=== PATIENT | female | born 1995 | race Caucasian/White ===

== ENCOUNTER 2017-10-18 15:15 | Emergency (ER) | payer OTHER, SELFPAY ==
[2017-10-18 15:18] VITALS: BP 109/66; PULSE 79; RESP 14; TEMP 36.3; O2SAT 98
--- NOTE | 2017-10-18 15:50 | ED.GENADUL ---
Disposition Clinical Impression: Tinea pedis of left foot Disposition: HOME Instructions: Tinea Pedis (ED) Additional Instructions: Use antifungal cream as prescribed. Please follow-up with podiatry. Return to the emergency department immediately for any worsening or new concerning symptoms. Prescriptions: Clotrimazole [CLOTRIMAZOLE 1%] 45 gm TP DIRECTED #1 tube Referrals: Bradley Lopez DPM [[facility] STAFF PHYSICIAN] - Medical Decision Making - Medical Decision Making 22-year-old female here with tinea pedis. Plan to treat with moisture reduction techniques and clotrimazole. Advised follow-up with podiatry should symptoms not improve. History of Present Illness - General Chief complaint: Cellulitis Stated complaint: PER [facility] Time Seen by Provider: 10/18/17 15:36 Source: patient, RN notes reviewed Mode of arrival: ambulatory Limitations: no limitations - History of Present Illness Initial comments: 22-year-old female presents with chief complaint of left foot infection. Patient notes she has had a rash that itches left foot for years. Over the past few days rash has worsened and now her toes are red, itchy and painful. Inflammation is severe. No modifiers. No associated fever. - Related Data Albuterol Sulfate [Albuterol Sulfate Hfa] 8.5 gm IH Q4H PRN PRN 12/21/14 Acetaminophen [Tylenol] 650 mg PO Q4H PRN PRN tab 09/18/15 Ibuprofen 400 mg PO Q4H PRN PRN #60 tablet 09/18/15 Nasal [place] 12/28/15 Sertraline HCl 100 mg PO DAILY #30 tab-cap 12/30/15 Bcp 1 tab PO DAILY 10/18/17 Clotrimazole [CLOTRIMAZOLE 1%] 45 gm TP DIRECTED #1 tube 10/18/17 Allergies Allergy/AdvReac Type Severity Reaction Status Date / Time amoxicillin Allergy Hives Unverified 10/18/17 15:23 cefixime [From Suprax] Allergy Hives Unverified 10/18/17 15:23 cephalexin Allergy Hives Unverified 10/18/17 15:23 clarithromycin [From Biaxin] Allergy Hives Unverified 10/18/17 15:23 clonidine Allergy Hives Unverified 10/18/17 15:23 erythromycin base Allergy Hives Unverified 10/18/17 15:23 Penicillins Allergy Hives Unverified 10/18/17 15:23 Sulfa (Sulfonamide Allergy Hives Unverified 10/18/17 15:23 Antibiotics) Review of Systems Constitutional: denies: chills, fever Skin: as per HPI Past Medical History - Past Medical History Medical history: asthma - Social History Smoking status: current everyday smoker Alcohol use: occasionally Drug use: none General Exam - General Limitations: no limitations General appearance: alert, in no apparent distress - Eye Eye exam: Absent: conjunctival injection - Respiratory Respiratory exam: Present: normal lung sounds bilaterally - Cardiovascular Cardiovascular Exam: Present: regular rate, normal rhythm, normal heart sounds - Skin Skin exam: Present: warm, dry, rash (Well demarcated scaly red rash sole of her foot extending up lateral foot and involving her toes, toes are red and appear slightly inflamed) Course Vital Signs - 24 hr 10/18/17 15:18 Temperature 36.3 C L Pulse 79 Respiratory 14 Rate Blood Pressure 109/66 Pulse Oximetry 98
--- NOTE | 2017-10-18 15:53 | ED.GENADUL_ITS ---
Disposition Clinical Impression: Tinea pedis of left foot Disposition: HOME Instructions: Tinea Pedis (ED) Additional Instructions: Use antifungal cream as prescribed. Please follow-up with podiatry. Return to the emergency department immediately for any worsening or new concerning symptoms. Prescriptions: Clotrimazole [CLOTRIMAZOLE 1%] 45 gm TP DIRECTED #1 tube Referrals: Bradley Lopez DPM [[facility] STAFF PHYSICIAN] - Medical Decision Making - Medical Decision Making 22-year-old female here with tinea pedis. Plan to treat with moisture reduction techniques and clotrimazole. Advised follow-up with podiatry should symptoms not improve. History of Present Illness - General Chief complaint: Cellulitis Stated complaint: PER [facility] Time Seen by Provider: 10/18/17 15:36 Source: patient, RN notes reviewed Mode of arrival: ambulatory Limitations: no limitations - History of Present Illness Initial comments: 22-year-old female presents with chief complaint of left foot infection. Patient notes she has had a rash that itches left foot for years. Over the past few days rash has worsened and now her toes are red, itchy and painful. Inflammation is severe. No modifiers. No associated fever. - Related Data Albuterol Sulfate [Albuterol Sulfate Hfa] 8.5 gm IH Q4H PRN PRN 12/21/14 Acetaminophen [Tylenol] 650 mg PO Q4H PRN PRN tab 09/18/15 Ibuprofen 400 mg PO Q4H PRN PRN #60 tablet 09/18/15 Nasal [place] 12/28/15 Sertraline HCl 100 mg PO DAILY #30 tab-cap 12/30/15 Bcp 1 tab PO DAILY 10/18/17 Clotrimazole [CLOTRIMAZOLE 1%] 45 gm TP DIRECTED #1 tube 10/18/17 Allergies Allergy/AdvReac Type Severity Reaction Status Date / Time amoxicillin Allergy Hives Unverified 10/18/17 15:23 cefixime [From Suprax] Allergy Hives Unverified 10/18/17 15:23 cephalexin Allergy Hives Unverified 10/18/17 15:23 clarithromycin [From Biaxin] Allergy Hives Unverified 10/18/17 15:23 clonidine Allergy Hives Unverified 10/18/17 15:23 erythromycin base Allergy Hives Unverified 10/18/17 15:23 Penicillins Allergy Hives Unverified 10/18/17 15:23 Sulfa (Sulfonamide Allergy Hives Unverified 10/18/17 15:23 Antibiotics) Review of Systems Constitutional: denies: chills, fever Skin: as per HPI Past Medical History - Past Medical History Medical history: asthma - Social History Smoking status: current everyday smoker Alcohol use: occasionally Drug use: none General Exam - General Limitations: no limitations General appearance: alert, in no apparent distress - Eye Eye exam: Absent: conjunctival injection - Respiratory Respiratory exam: Present: normal lung sounds bilaterally - Cardiovascular Cardiovascular Exam: Present: regular rate, normal rhythm, normal heart sounds - Skin Skin exam: Present: warm, dry, rash (Well demarcated scaly red rash sole of her foot extending up lateral foot and involving her toes, toes are red and appear slightly inflamed) Course Vital Signs - 24 hr 10/18/17 15:18 Temperature 36.3 C L Pulse 79 Respiratory 14 Rate Blood Pressure 109/66 Pulse Oximetry 98
== END 2017-10-18 16:06 | disposition home or self-care (01) ==
PROVIDERS: Emergency Provider Student in an Organized Health Care Education/Training Program; PCP Internal Medicine
DX: B35.3 Tinea pedis (principal)
CPT/HCPCS: 36416; 82962; 99283

== ENCOUNTER 2017-10-19 14:20 | Emergency (ER) | payer OTHER, SELFPAY ==
[2017-10-19 14:33] VITALS: BP 116/81; PULSE 87; RESP 18; TEMP 36.6; O2SAT 100
--- NOTE | 2017-10-19 14:48 | ED.GENADUL_ITS ---
Disposition Clinical Impression: Hand, foot and mouth disease Disposition: HOME Condition: Stable Instructions: Hand, Foot, and Mouth Disease (ED) Additional Instructions: Stay well-hydrated and take Tylenol or Motrin as needed for pain control. If not improving over the next week please follow-up with your primary care provider for reassessment. Continue to wash your hands cover your cough and use normal infection spread prevention measures Referrals: Dean Pastrana MD [Primary Care Provider] - 1 week (As needed for reassessment if not improving) Forms: Work Release Medical Decision Making - Medical Decision Making Patient presenting to the emergency department for complaint of rash on feet and palmar surface of her hands. Old records were reviewed and patient was seen yesterday and it was thought to be bilateral tinea on her feet but now showing up on her hands and reassessing it I feel that this is hprl-motf-ssj- mouth. Patient does have some viral symptoms of sore throat and subjective fever and chills. Physical exam does show blanchable erythematous rash on the palmar surface of the hands, plantar and dorsal aspect of the feet. Otherwise patient is well in appearance with no significant signs of illness or distress. Given this patient was encouraged to use symptomatic jwic-cja-vwqamlc treatment of hydration and Tylenol or Motrin and to follow-up with her primary care if not improving in the next 7 days. After discussion of diagnosis and plan of care with patient patient agreed and stated no further needs, questions , or concerns at this time. History of Present Illness - General Chief complaint: RashLesion Stated complaint: [place] ON RASH Time Seen by Provider: 10/19/17 14:24 Source: patient, RN notes reviewed Mode of arrival: ambulatory Limitations: no limitations - History of Present Illness Initial comments: Patient reports that she has ongoing athlete's foot to her left lower foot but then yesterday she began having increased pain and discomfort to both feet. She was seen in the emergency department and diagnosed with bilateral fungal infection. Today she had increased discomfort in her feet and then looked down and noticed similar type rash on her hands. She does state that she has also began having a sore throat and some subjective fever and chills. Patient does state a coworker recently was diagnosed with vbxb-eucr-zcw-mouth and is wondering if this is what is going on. Onset/Timin -: days(s) Location: upper extremity, lower extremity Severity scale (1-10): 8 Quality: aching Consistency: constant Improves with: none Worsens with: none Associated Symptoms: denies other symptoms Treatments Prior to Arrival: none - Related Data Albuterol Sulfate [Albuterol Sulfate Hfa] 8.5 gm IH Q4H PRN PRN 12/21/14 Acetaminophen [Tylenol] 650 mg PO Q4H PRN PRN tab 09/18/15 Ibuprofen 400 mg PO Q4H PRN PRN #60 tablet 09/18/15 Nasal [place] 12/28/15 Sertraline HCl 100 mg PO DAILY #30 tab-cap 12/30/15 Bcp 1 tab PO DAILY 10/18/17 Clotrimazole [CLOTRIMAZOLE 1%] 45 gm TP DIRECTED #1 tube 10/18/17 Allergies Allergy/AdvReac Type Severity Reaction Status Date / Time amoxicillin Allergy Hives Unverified 10/19/17 14:35 cefixime [From Suprax] Allergy Hives Unverified 10/19/17 14:35 cephalexin Allergy Hives Unverified 10/19/17 14:35 clarithromycin [From Biaxin] Allergy Hives Unverified 10/19/17 14:35 clonidine Allergy Hives Unverified 10/19/17 14:35 erythromycin base Allergy Hives Unverified 10/19/17 14:35 Penicillins Allergy Hives Unverified 10/19/17 14:35 Sulfa (Sulfonamide Allergy Hives Unverified 10/19/17 14:35 Antibiotics) Review of Systems Constitutional: chills, diaphoresis, fever. denies: malaise ENT: throat pain. denies: ear pain, congestion Respiratory: denies: cough, shortness of breath Cardiovascular: denies: chest pain Gastrointestinal: denies: abdominal pain, nausea, vomiting Musculoskeletal: denies: joint swelling Skin: as per HPI, rash Neurological: denies: headache Past Medical History - Past Medical History Medical history: asthma Surgical history: appendectomy Psychiatric history: anxiety, depression - Social History Smoking status: current everyday smoker Alcohol use: occasionally Drug use: marijuana General Exam - General Limitations: no limitations General appearance: alert, in no apparent distress - ENT ENT exam: Present: mucous membranes moist, TM's normal bilaterally, normal external ear exam. Absent: normal orophraynx (Tonsillary erythema is noted otherwise unremarkable, no rash, no lesions. ) - Respiratory Respiratory exam: Present: normal lung sounds bilaterally. Absent: respiratory distress, wheezes, rales, rhonchi, stridor - Cardiovascular Cardiovascular Exam: Present: regular rate, normal rhythm, normal heart sounds. Absent: bradycardia, tachycardia, systolic murmur, diastolic murmur, rubs, gallop, clicks - Extremities Exam Extremities exam: Present: full ROM, normal capillary refill. Absent: joint swelling - Neurological Exam Neurological exam: Present: alert, oriented X3, normal gait. Absent: altered - Skin Skin exam: Present: warm, dry, rash (Patient has and erythematous rash to the palmar surfaces of the hands, dorsal and plantar surfaces of the feet. Rash is blanchable and macular. Patient also does have significant excoriation and erythema to the left lower foot that she states is her normal athlete's foot.) Course Vital Signs - 24 hr 10/19/17 14:33 Temperature 36.6 C Pulse 87 Respiratory 18 Rate Blood Pressure 116/81 Pulse Oximetry 100
[2017-10-19 15:04] VITALS: BP 116/81; PULSE 87; RESP 18; TEMP 36.6; O2SAT 100
== END 2017-10-19 15:04 | disposition home or self-care (01) ==
PROVIDERS: Emergency Provider Emergency Medicine; PCP Internal Medicine
DX: B08.4 Enteroviral vesicular stomatitis with exanthem (principal)
CPT/HCPCS: 99282

== ENCOUNTER 2017-12-11 18:39 | Emergency (ER) | payer OTHER, SELFPAY ==
[2017-12-11] VITALS (33 sets, daily range): BP systolic 109–141; BP diastolic 53–89; PULSE 72–153; RESP 12–33; TEMP 36.7–36.9; O2SAT 94–100
--- NOTE | 2017-12-11 18:51 | W.ED.GENAD ---
Discharge Plan Disposition Patient Disposition: HOME Condition: Stable Discharge Details Chief Complaint: Seizure Clinical Impression: Seizure Primary Care Provider: Dean Pastrana ED Provider: Jose Armando Dunaway Home Meds and New Rx's Prescriptions: New levetiracetam [Keppra] 500 mg tablet 500 mg PO BID Qty: 60 RF: 0 Continue NASAL SPRAY RF: 0 sertraline 50 MG tablet 100 mg PO DAILY Qty: 30 RF: 0 albuterol sulfate 8.5 GM HFA aerosol inhaler 8.5 gm Inhalation Q4H PRN PRNRF: 0 acetaminophen [Tylenol] 325 MG tablet 650 mg PO Q4H PRN PRNRF: 0 ibuprofen 400 MG tablet 400 mg PO Q4H PRN PRNQty: 60 RF: 0 Bcp 1 tab PO DAILY RF: 0 clotrimazole 45 GM cream 45 gm Topical DIRECTED Qty: 1 RF: 1 Discharge Instructions Instructions: Levetiracetam (By mouth), Recurrent Seizures in Adults (ED) Additional Instructions: Please return immediately to the emergency department if you develop any new or worsening symptoms or if you become otherwise concerned. It is extremely important that you make an appointment to be seen by neurology and by our primary care doctor within the next 1-[address] until you are seen by a neurologist. Referrals: Dean Pastrana MD [Primary Care Provider] - Isamar Dickerson MD [ [facility] STAFF PHYSICIAN] - Discharge Data Discharge Date/Time-TO BE ENTERED AT DEPARTURE: 12/11/17 22:14 Medical Decision Making Dianne Anaya is a 22 y/o woman with h/o asthma who presented to the emergency department with seizure, with h/o one seizure in the past and not on anti-epileptics. On exam Pt intially mildly confused and tachycardic. Pt rapidly became oriented. Non-focal neuro exam, well and non-toxic appearing. CT head at time of last sz 05/19 neg on record review. Exam/hx not c/w trauma, syncope, CVA, sepsis, ACS, vascular emergency. Concern for recurrent seizure, suspect idiopathic. Plan for EKG, screening labs, IVF hydration, telemetry, keppra load. Will monitor and reassess. Pt with non-diagnostic labs. Significant anion gap, likely 2/2 seizure activity but will continue fluids and repeat. Pt continues to feel well and in her usual state of health. Tachycardia resolved. Pt placed on care management list for outpt f/u with neurology. Anticipating d/c to home, I had lengthy discussion with Pt re: RTED precautions and importance of outpt f/u with PCP and neurology, no driving, no swimming, no other danger activity until cleared by neurology. Rx keppra. Pt signed out to Dr. Dunaway at shift change with reassessment, repeat chemistry and UA/upreg pending. Medical Records Medical records reviewed: Yes I reviewed the patient's medical records. Lab Data Lab results reviewed: Yes I reviewed the patient's lab results. ECG Data Attestation: I personally reviewed and interpreted this ECG (s) as follows: Interpretation: EKG shows ST at 147 with nl axis, no brugada/WPW/long QT/HOCM, no acute ischemic changes HPI General Mode of arrival: EMS. Date/Time Provider Initiated Documentation: 12/11/17 18:51. Limitations to Documentation: no limitations. Information obtained by: patient and family. HPI Narrative: Dianne Anaya is a 22-year-old woman with history of asthma presenting to the emergency room with seizure. Patient is accompanied by her who reports that she had been in her usual state of health and was sitting in the passenger seat of the car while he was driving when she began seizing just prior to arrival. Patient reports that she seized for 1-2 minutes. There was no tongue biting or incontinence. He reports that patient had seizure May 2017. She had a head CT that was negative at that time and did see a physician, but was not started on seizure medications. No other prior seizures. He reports the patient has had no recent illnesses, has been eating and drinking normally, no medication changes, no recent travel. Patient is postictal initial encounter, alert somewhat confused and unsure of what happened. She reports that she feels tired but denies any other complaint. There was no trauma per patient's , she stayed seated in the passenger seat and did not hit her head. Related Data Home Medications Medication Instructions Recorded Confirmed albuterol sulfate 8.5 gm INHALATION Q4H PRN PRN 12/21/14 10/19/17 acetaminophen [Tylenol] 650 mg PO Q4H PRN PRN tab 09/18/15 10/19/17 ibuprofen 400 mg PO Q4H PRN PRN #60 tablet 09/18/15 10/19/17 Nasal [place] 12/28/15 sertraline 100 mg PO DAILY #30 tab-cap 12/30/15 Bcp 1 tab PO DAILY 10/18/17 10/19/17 clotrimazole 45 gm TOPICAL DIRECTED #1 tube 10/18/17 10/19/17 levetiracetam [Keppra] 500 mg PO BID #60 tab 12/11/17 Previous Rx's Medication Instructions Recorded acetaminophen [Tylenol] 650 mg PO Q4H PRN PRN tab 09/18/15 ibuprofen 400 mg PO Q4H PRN PRN #60 tablet 09/18/15 clotrimazole 45 gm TOPICAL DIRECTED #1 tube 10/18/17 levetiracetam [Keppra] 500 mg PO BID #60 tab 12/11/17 Allergies Allergy/AdvReac Type Severity Reaction Status Date / Time amoxicillin Allergy Hives Unverified 10/19/17 14:35 cefixime [From Suprax] Allergy Hives Unverified 10/19/17 14:35 cephalexin Allergy Hives Unverified 10/19/17 14:35 clarithromycin [From Biaxin] Allergy Hives Unverified 10/19/17 14:35 clonidine Allergy Hives Unverified 10/19/17 14:35 erythromycin base Allergy Hives Unverified 10/19/17 14:35 Penicillins Allergy Hives Unverified 10/19/17 14:35 Sulfa (Sulfonamide Allergy Hives Unverified 10/19/17 14:35 Antibiotics) General Stated Complaint: Seizure RIVKA: 3 Review of Systems Review of Systems Constitutional: denies fevers Eyes: denies eye pain ENT: denies facial pain, dental pain, sore throat Cardiovascular: denies chest pain, edema Respiratory: denies SOB, cough GI: denies abdominal pain, vomiting, diarrhea : denies flank pain MSK: denies back pain, neck pain, arthralgias, myalgias Skin: denies rash Neuro: denies headaches, lightheadedness, weakness PFSH Family History Mother Alcohol abuse Hyperlipidemia Mental disorder Father Alcohol abuse Essential hypertension Brother Substance abuse Alcohol abuse Mental disorder Brother Alcohol abuse Brother Alcohol abuse Brother Alcohol abuse Social History Smoking/Tobacco Use Status: Current every day Surgical History Appendectomy (11/08/15) Exam Narrative Exam Narrative: Constitutional: well and svo-psbph-ftocigmzo, pleasant, conversing normally HENT: head atraumatic, normocephalic normal inspection, mucous membranes moist Eyes: conjunctiva normal, sclera normal, pupils 3mm b/l Neck: no stridor, normal ROM, trachea midline Chest: normal inspection Resp: normal work of breathing, LCTAB Cardio: normal rate, normal rhythm, no murmur appreciated GI: abdomen soft, non-tender, non-distended Back: normal inspection, no rash Skin: warm, dry, normal color, no rash Neuro: initially alert but confused as to recent events. rapidly exam changed to alert and oriented x3 without confusion, grossly non-focal, normal tone Ext: no edema Psych: normal mood, normal affect, normal behavior Course Vital Signs Temperature 36.9 C 12/11/17 18:42 Pulse 153 H 12/11/17 18:42 Respiratory Rate 33 H 12/11/17 18:42 Blood Pressure 141/89 H 12/11/17 18:42 Pulse Oximetry 96 12/11/17 18:42 Temperature 36.9 C 12/11/17 18:42 Pulse 153 H 12/11/17 18:42 Respiratory Rate 33 H 12/11/17 18:42 Respiratory Effort 12/11/17 18:45 Blood Pressure 141/89 H 12/11/17 18:42 Blood Pressure Position Supine 12/11/17 18:42 Pulse Oximetry 96 12/11/17 18:42 Oxygen Delivery Method Room Air 12/11/17 18:42 Oxygen Flow Rate 0 12/11/17 18:42 Sign Out Sign Out Data: Sign Out Comment: Patient signed out to Dr. Dunaway pending repeat chemistry and urine testing. Anticipate discharge home. Last updated by Lelia Romo MD at 12/11/17 21:30
[2017-12-11] MEDS: Normal Saline 1,000 ML 1000 ML IV (19:00)
[2017-12-11 19:28] LABS: Abs Immature Grans 0.06 k/cumm (0.0-0.09); HCT 44.4 % (36.0-46.0); Mean Corp. HGB Concentration 31.5 g/dL (32.0-36.0); Mean Corpuscular Hemoglobin 29.9 pg (27.0-33.0); Mean Corpuscular Volume 94.9 fL (80-95); Mean Platelet Volume 12.3 fL (8.0-11.0); Platelet Count 281 x1000/uL (130-400); RBC 4.68 m/cumm (4.00-5.20); RBC Distribution Width 13.1 % (11.7-14.6); White Blood Cell Count 17.41 k/cumm (4.4-10.8)
[2017-12-11 19:40] LABS: ALT 39 U/L (12-78); AST 27 U/L (15-37); Albumin 3.9 g/dL (3.4-5.0); Alkaline Phosphatase 79 U/L (46-116); Anion Gap 25.9 mmol/L (3-11); BUN 7 mg/dL (7-18); Bilirubin, Total 0.3 mg/dL (0.2-1.0); CO2 13.1 mmol/L (21.0-32.0); CREATININE 1.09 mg/dL (0.55-1.02); Calcium 8.6 mg/dL (8.5-10.1); Chloride 100 mmol/L (98-107); Glucose 138 mg/dL (70-100); Potassium 3.3 mmol/L (3.5-5.1); Sodium 139 mmol/L (136-145)
[2017-12-11 19:56] LABS: Atypical Lymphocytes % 4
[2017-12-11 19:57] LABS: Absolute Monocyte Count 1.92 k/cumm (0.11-0.7); Diff Comment Manual Differential; Other Cells 0; Promyelocytes % 0 %
[2017-12-11 19:58] LABS: Absolute Neutrophil Count 5.22 k/cumm (1.2-6.7)
[2017-12-11 21:35] LABS: Bilirubin Negative (Negative); Blood Negative (Negative); Clarity Clear; Glucose Negative (Negative); Ketones Negative (Negative); Leukocyte Esterase Negative (Negative); Nitrite Negative (Negative); Urobilinogen 0.2 EU/dL (Up TO 0.2); pH 7.5 (5-8)
--- NOTE | 2017-12-11 21:41 | ED.GENADUL_ITS ---
Discharge Plan Disposition Patient Disposition: HOME Condition: Stable Discharge Details Chief Complaint: Seizure Clinical Impression: Seizure Primary Care Provider: Dean Pastrana ED Provider: Jose Armando Dunaway Home Meds and New Rx's Prescriptions: New levetiracetam [Keppra] 500 mg tablet 500 mg PO BID Qty: 60 RF: 0 Continue NASAL SPRAY RF: 0 sertraline 50 MG tablet 100 mg PO DAILY Qty: 30 RF: 0 albuterol sulfate 8.5 GM HFA aerosol inhaler 8.5 gm Inhalation Q4H PRN PRNRF: 0 acetaminophen [Tylenol] 325 MG tablet 650 mg PO Q4H PRN PRNRF: 0 ibuprofen 400 MG tablet 400 mg PO Q4H PRN PRNQty: 60 RF: 0 Bcp 1 tab PO DAILY RF: 0 clotrimazole 45 GM cream 45 gm Topical DIRECTED Qty: 1 RF: 1 Discharge Instructions Instructions: Levetiracetam (By mouth), Recurrent Seizures in Adults (ED) Additional Instructions: Please return immediately to the emergency department if you develop any new or worsening symptoms or if you become otherwise concerned. It is extremely important that you make an appointment to be seen by neurology and by our primary care doctor within the next 1-[address] until you are seen by a neurologist. Referrals: Dean Pastrana MD [Primary Care Provider] - Isamar Dickerson MD [ [facility] STAFF PHYSICIAN] - Discharge Data Discharge Date/Time-TO BE ENTERED AT DEPARTURE: 12/11/17 22:14 Medical Decision Making Dianne Anaya is a 22 y/o woman with h/o asthma who presented to the emergency department with seizure, with h/o one seizure in the past and not on anti- epileptics. On exam Pt intially mildly confused and tachycardic. Pt rapidly became oriented. Non-focal neuro exam, well and non-toxic appearing. CT head at time of last sz 05/19 neg on record review. Exam/hx not c/w trauma, syncope, CVA , sepsis, ACS, vascular emergency. Concern for recurrent seizure, suspect idiopathic. Plan for EKG, screening labs, IVF hydration, telemetry, keppra load. Will monitor and reassess. Pt with non-diagnostic labs. Significant anion gap, likely 2/2 seizure activity but will continue fluids and repeat. Pt continues to feel well and in her usual state of health. Tachycardia resolved. Pt placed on care management list for outpt f/u with neurology. Anticipating d/ c to home, I had lengthy discussion with Pt re: RTED precautions and importance of outpt f/u with PCP and neurology, no driving, no swimming, no other danger activity until cleared by neurology. Rx keppra. Pt signed out to Dr. Dunaway at shift change with reassessment, repeat chemistry and UA/upreg pending. Medical Records Medical records reviewed: Yes I reviewed the patient's medical records. Lab Data Lab results reviewed: Yes I reviewed the patient's lab results. ECG Data Attestation: I personally reviewed and interpreted this ECG (s) as follows: Interpretation: EKG shows ST at 147 with nl axis, no brugada/WPW/long QT/HOCM, no acute ischemic changes HPI General Mode of arrival: EMS . Date/Time Provider Initiated Documentation: 12/11/17 18:51 . Limitations to Documentation: no limitations . Information obtained by: patient and family . HPI Narrative: Dianne Anaya is a 22-year-old woman with history of asthma presenting to the emergency room with seizure. Patient is accompanied by her who reports that she had been in her usual state of health and was sitting in the passenger seat of the car while he was driving when she began seizing just prior to arrival. Patient reports that she seized for 1-2 minutes. There was no tongue biting or incontinence. He reports that patient had seizure May 2017. She had a head CT that was negative at that time and did see a physician, but was not started on seizure medications. No other prior seizures. He reports the patient has had no recent illnesses, has been eating and drinking normally, no medication changes, no recent travel. Patient is postictal initial encounter, alert somewhat confused and unsure of what happened. She reports that she feels tired but denies any other complaint. There was no trauma per patient's , she stayed seated in the passenger seat and did not hit her head. Related Data Home Medications Medication Instructions Recorded Confirmed albuterol sulfate 8.5 gm INHALATION Q4H PRN PRN 12/21/14 10/19/17 acetaminophen [Tylenol] 650 mg PO Q4H PRN PRN tab 09/18/15 10/19/17 ibuprofen 400 mg PO Q4H PRN PRN #60 tablet 09/18/15 10/19/17 Nasal [place] 12/28/15 sertraline 100 mg PO DAILY #30 tab-cap 12/30/15 Bcp 1 tab PO DAILY 10/18/17 10/19/17 clotrimazole 45 gm TOPICAL DIRECTED #1 tube 10/18/17 10/19/17 levetiracetam [Keppra] 500 mg PO BID #60 tab 12/11/17 Previous Rx's Medication Instructions Recorded acetaminophen [Tylenol] 650 mg PO Q4H PRN PRN tab 09/18/15 ibuprofen 400 mg PO Q4H PRN PRN #60 tablet 09/18/15 clotrimazole 45 gm TOPICAL DIRECTED #1 tube 10/18/17 levetiracetam [Keppra] 500 mg PO BID #60 tab 12/11/17 Allergies Allergy/AdvReac Type Severity Reaction Status Date / Time amoxicillin Allergy Hives Unverified 10/19/17 14:35 cefixime [From Suprax] Allergy Hives Unverified 10/19/17 14:35 cephalexin Allergy Hives Unverified 10/19/17 14:35 clarithromycin [From Biaxin] Allergy Hives Unverified 10/19/17 14:35 clonidine Allergy Hives Unverified 10/19/17 14:35 erythromycin base Allergy Hives Unverified 10/19/17 14:35 Penicillins Allergy Hives Unverified 10/19/17 14:35 Sulfa (Sulfonamide Allergy Hives Unverified 10/19/17 14:35 Antibiotics) General Stated Complaint: Seizure RIVKA: 3 Review of Systems Review of Systems Constitutional: denies fevers Eyes: denies eye pain ENT: denies facial pain, dental pain, sore throat Cardiovascular: denies chest pain, edema Respiratory: denies SOB, cough GI: denies abdominal pain, vomiting, diarrhea : denies flank pain MSK: denies back pain, neck pain, arthralgias, myalgias Skin: denies rash Neuro: denies headaches, lightheadedness, weakness PFSH Family History Mother Alcohol abuse Hyperlipidemia Mental disorder Father Alcohol abuse Essential hypertension Brother Substance abuse Alcohol abuse Mental disorder Brother Alcohol abuse Brother Alcohol abuse Brother Alcohol abuse Social History Smoking/Tobacco Use Status: Current every day Surgical History Appendectomy (11/08/15) Exam Narrative Exam Narrative: Constitutional: well and [id number], pleasant, conversing normally HENT: head atraumatic, normocephalic normal inspection, mucous membranes moist Eyes: conjunctiva normal, sclera normal, pupils 3mm b/l Neck: no stridor, normal ROM, trachea midline Chest: normal inspection Resp: normal work of breathing, LCTAB Cardio: normal rate, normal rhythm, no murmur appreciated GI: abdomen soft, non-tender, non-distended Back: normal inspection, no rash Skin: warm, dry, normal color, no rash Neuro: initially alert but confused as to recent events. rapidly exam changed to alert and oriented x3 without confusion, grossly non-focal, normal tone Ext: no edema Psych: normal mood, normal affect, normal behavior Course Vital Signs Temperature 36.9 C 12/11/17 18:42 Pulse 153 H 12/11/17 18:42 Respiratory Rate 33 H 12/11/17 18:42 Blood Pressure 141/89 H 12/11/17 18:42 Pulse Oximetry 96 12/11/17 18:42 Temperature 36.9 C 12/11/17 18:42 Pulse 153 H 12/11/17 18:42 Respiratory Rate 33 H 12/11/17 18:42 Respiratory Effort 12/11/17 18:45 Blood Pressure 141/89 H 12/11/17 18:42 Blood Pressure Position Supine 12/11/17 18:42 Pulse Oximetry 96 12/11/17 18:42 Oxygen Delivery Method Room Air 12/11/17 18:42 Oxygen Flow Rate 0 12/11/17 18:42 Sign Out Sign Out Data: Sign Out Comment: Patient signed out to Dr. Dunaway pending repeat chemistry and urine testing. Anticipate discharge home. Last updated by Lelia Romo MD at 12/11/17 21:30
[2017-12-11 21:44] LABS: Anion Gap 6.2 mmol/L (3-11); BUN 5 mg/dL (7-18); CO2 24.8 mmol/L (21.0-32.0); CREATININE 0.55 mg/dL (0.55-1.02); Calcium 7.2 mg/dL (8.5-10.1); Chloride 107 mmol/L (98-107); Glucose 87 mg/dL (70-100); Potassium 4.5 mmol/L (3.5-5.1); Sodium 138 mmol/L (136-145)
[2017-12-11 21:53] LABS: Bacteria Moderate HPF (Negative); Crystals Negative HPF (Negative); Epithelial Cells Many HPF (Negative); RBC Negative (0-2); WBC 0-2 HPF (0-5)
[2017-12-11 21:54] LABS: C & S Indicated? No/Sq. Contamination; Casts Negative LPF (Negative); Mucus Moderate (Negative)
--- NOTE | 2017-12-11 21:59 | ED.GENADUL_ITS ---
Discharge Plan Disposition Patient Disposition: HOME Condition: Stable Discharge Details Chief Complaint: Seizure Clinical Impression: Seizure Primary Care Provider: Dean Pastrana ED Provider: Jose Armando Dunaway Home Meds and New Rx's Prescriptions: New levetiracetam [Keppra] 500 mg tablet 500 mg PO BID Qty: 60 RF: 0 Continue NASAL SPRAY RF: 0 sertraline 50 MG tablet 100 mg PO DAILY Qty: 30 RF: 0 albuterol sulfate 8.5 GM HFA aerosol inhaler 8.5 gm Inhalation Q4H PRN PRNRF: 0 acetaminophen [Tylenol] 325 MG tablet 650 mg PO Q4H PRN PRNRF: 0 ibuprofen 400 MG tablet 400 mg PO Q4H PRN PRNQty: 60 RF: 0 Bcp 1 tab PO DAILY RF: 0 clotrimazole 45 GM cream 45 gm Topical DIRECTED Qty: 1 RF: 1 Discharge Instructions Instructions: Levetiracetam (By mouth), Recurrent Seizures in Adults (ED) Additional Instructions: Please return immediately to the emergency department if you develop any new or worsening symptoms or if you become otherwise concerned. It is extremely important that you make an appointment to be seen by neurology and by our primary care doctor within the next 1-[address] drive until you are seen by a neurologist. Referrals: Dean Pastrana MD [Primary Care Provider] - Isamar Dickerson MD [ [facility] STAFF PHYSICIAN] - Medical Decision Making Received signout from Dr. Romo, please see her note regarding patient's initial presentation and plan of care. Patient did have closure of her anion gap following fluid resuscitation. She is improved. She will continue the antiepileptic as prescribed. She is stable for discharge. Discussed with her home care as well as return precautions Lab Data Lab results reviewed: Yes I reviewed the patient's lab results. Laboratory Tests Range/Units 12/11/17 12/11/17 12/11/17 18:40 18:40 21:00 WBC (4.4-10.8) k/cumm 17.41 H RBC (4.00-5.20) m/cumm 4.68 Hgb (12.0-15.5) g/dL 14.0 Hct (36.0-46.0) % 44.4 MCV (80-95) fL 94.9 MCH (27.0-33.0) pg 29.9 MCHC (32.0-36.0) g/dL 31.5 L RDW (11.7-14.6) % 13.1 Plt Count (130-400) x1000/uL 281 MPV (8.0-11.0) fL 12.3 H Immature Gran % See Differential Neutrophils % 30.0 Lymphocytes % 54.0 Monocytes % 11.0 Eosinophils % 0.0 Basophils % 0.0 Absolute Neutrophils (1.2-6.7) k/cumm 5.22 Band Neutrophils % 0.0 Absolute Lymphocytes (1.2-3.4) k/cumm 10.10 H Absolute Monocytes (0.11-0.7) k/cumm 1.92 H Absolute Eosinophils (0.0-0.7) k/cumm 0.00 Absolute Basophils (0.0-0.2) k/cumm 0.00 Metamyelocytes % 0.0 Myelocytes % 0.0 Promyelocytes % 0 Differential Comment Manual differential Atypical Lymphocytes 4 Other Cell Type 0 RBC Morphology See below Sodium (136-145) mmol/L 139 Potassium (3.5-5.1) mmol/L 3.3 L Chloride (98-107) mmol/L 100 Carbon Dioxide (21.0-32.0) mmol/L 13.1 L Anion Gap (3-11) mmol/L 25.9 H BUN (7-18) mg/dL 7 Creatinine (0.55-1.02) mg/dL 1.09 H Estimated GFR/1.73 m2 (mL/min/1.73m2) >= 60.00 Glucose (70-100) mg/dL 138 H Calcium (8.5-10.1) mg/dL 8.6 Total Bilirubin (0.2-1.0) mg/dL 0.3 AST (15-37) U/L 27 ALT (12-78) U/L 39 Alkaline Phosphatase (46-116) U/L 79 Total Protein (6.4-8.2) g/dL 8.0 Albumin (3.4-5.0) g/dL 3.9 Urine Color (Yellow) Yellow Urine Clarity Clear Urine pH (5-8) 7.5 Ur Specific [place] (1.005-1.025) 1.020 Urine Protein (Negative) mg/dL 30 H Urine Ketones (Negative) mg/dL Negative Urine Blood (Negative) Negative Urine Nitrite (Negative) Negative Urine Bilirubin (Negative) Negative Urine Urobilinogen (Up TO 0.2) EU/dL 0.2 Ur Leukocyte Esterase (Negative) Negative Urine RBC (0-2) Negative Urine WBC (0-5) HPF 0-2 Ur Epithelial Cells (Negative) HPF Many Urine Crystals (Negative) HPF Negative Urine Bacteria (Negative) HPF Moderate Urine Casts (Negative) LPF Negative Urine Mucus (Negative) Moderate Ur Culture Indicated? No/sq. contamination Urine Glucose (Negative) mg/dL Negative Range/Units 12/11/17 21:00 WBC (4.4-10.8) k/cumm RBC (4.00-5.20) m/cumm Hgb (12.0-15.5) g/dL Hct (36.0-46.0) % MCV (80-95) fL MCH (27.0-33.0) pg MCHC (32.0-36.0) g/dL RDW (11.7-14.6) % Plt Count (130-400) x1000/uL MPV (8.0-11.0) fL Immature Gran % Neutrophils % Lymphocytes % Monocytes % Eosinophils % Basophils % Absolute Neutrophils (1.2-6.7) k/cumm Band Neutrophils % Absolute Lymphocytes (1.2-3.4) k/cumm Absolute Monocytes (0.11-0.7) k/cumm Absolute Eosinophils (0.0-0.7) k/cumm Absolute Basophils (0.0-0.2) k/cumm Metamyelocytes % Myelocytes % Promyelocytes % Differential Comment Atypical Lymphocytes Other Cell Type RBC Morphology Sodium (136-145) mmol/L 138 Potassium (3.5-5.1) mmol/L 4.5 D Chloride (98-107) mmol/L 107 Carbon Dioxide (21.0-32.0) mmol/L 24.8 Anion Gap (3-11) mmol/L 6.2 BUN (7-18) mg/dL 5 L Creatinine (0.55-1.02) mg/dL 0.55 D Estimated GFR/1.73 m2 (mL/min/1.73m2) >= 60.00 Glucose (70-100) mg/dL 87 D Calcium (8.5-10.1) mg/dL 7.2 L Total Bilirubin (0.2-1.0) mg/dL AST (15-37) U/L ALT (12-78) U/L Alkaline Phosphatase (46-116) U/L Total Protein (6.4-8.2) g/dL Albumin (3.4-5.0) g/dL Urine Color (Yellow) Urine Clarity Urine pH (5-8) Ur Specific [place] (1.005-1.025) Urine Protein (Negative) mg/dL Urine Ketones (Negative) mg/dL Urine Blood (Negative) Urine Nitrite (Negative) Urine Bilirubin (Negative) Urine Urobilinogen (Up TO 0.2) EU/dL Ur Leukocyte Esterase (Negative) Urine RBC (0-2) Urine WBC (0-5) HPF Ur Epithelial Cells (Negative) HPF Urine Crystals (Negative) HPF Urine Bacteria (Negative) HPF Urine Casts (Negative) LPF Urine Mucus (Negative) Ur Culture Indicated? Urine Glucose (Negative) mg/dL HPI General Mode of arrival: EMS . Date/Time Provider Initiated Documentation: 12/11/17 18:51 . Limitations to Documentation: no limitations . Information obtained by: patient and family . Related Data Home Medications Medication Instructions Recorded Confirmed albuterol sulfate 8.5 gm INHALATION Q4H PRN PRN 12/21/14 10/19/17 acetaminophen [Tylenol] 650 mg PO Q4H PRN PRN tab 09/18/15 10/19/17 ibuprofen 400 mg PO Q4H PRN PRN #60 tablet 09/18/15 10/19/17 Nasal [place] 12/28/15 sertraline 100 mg PO DAILY #30 tab-cap 12/30/15 Bcp 1 tab PO DAILY 10/18/17 10/19/17 clotrimazole 45 gm TOPICAL DIRECTED #1 tube 10/18/17 10/19/17 levetiracetam [Keppra] 500 mg PO BID #60 tab 12/11/17 Previous Rx's Medication Instructions Recorded acetaminophen [Tylenol] 650 mg PO Q4H PRN PRN tab 09/18/15 ibuprofen 400 mg PO Q4H PRN PRN #60 tablet 09/18/15 clotrimazole 45 gm TOPICAL DIRECTED #1 tube 10/18/17 levetiracetam [Keppra] 500 mg PO BID #60 tab 12/11/17 Allergies Allergy/AdvReac Type Severity Reaction Status Date / Time amoxicillin Allergy Hives Unverified 10/19/17 14:35 cefixime [From Suprax] Allergy Hives Unverified 10/19/17 14:35 cephalexin Allergy Hives Unverified 10/19/17 14:35 clarithromycin [From Biaxin] Allergy Hives Unverified 10/19/17 14:35 clonidine Allergy Hives Unverified 10/19/17 14:35 erythromycin base Allergy Hives Unverified 10/19/17 14:35 Penicillins Allergy Hives Unverified 10/19/17 14:35 Sulfa (Sulfonamide Allergy Hives Unverified 10/19/17 14:35 Antibiotics) General Stated Complaint: Seizure RIVKA: 3 PFSH Family History Mother Alcohol abuse Hyperlipidemia Mental disorder Father Alcohol abuse Essential hypertension Brother Substance abuse Alcohol abuse Mental disorder Brother Alcohol abuse Brother Alcohol abuse Brother Alcohol abuse Social History Smoking/Tobacco Use Status: Current every day Surgical History Appendectomy (11/08/15) Course Vital Signs Temperature 36.9 C 12/11/17 18:42 Pulse 153 H 12/11/17 18:42 Respiratory Rate 33 H 12/11/17 18:42 Blood Pressure 141/89 H 12/11/17 18:42 Pulse Oximetry 96 12/11/17 18:42 Temperature 36.9 C 12/11/17 18:42 Pulse 153 H 12/11/17 18:42 Respiratory Rate 33 H 12/11/17 18:42 Respiratory Effort 12/11/17 18:45 Blood Pressure 141/89 H 12/11/17 18:42 Blood Pressure Position Supine 12/11/17 18:42 Pulse Oximetry 96 12/11/17 18:42 Oxygen Delivery Method Room Air 12/11/17 18:42 Oxygen Flow Rate 0 12/11/17 18:42 Lab/Test Results Lab/Test Results: Laboratory Tests Range/Units 12/11/17 12/11/17 12/11/17 18:40 18:40 21:00 WBC (4.4-10.8) k/cumm 17.41 H RBC (4.00-5.20) m/cumm 4.68 Hgb (12.0-15.5) g/dL 14.0 Hct (36.0-46.0) % 44.4 MCV (80-95) fL 94.9 MCH (27.0-33.0) pg 29.9 MCHC (32.0-36.0) g/dL 31.5 L RDW (11.7-14.6) % 13.1 Plt Count (130-400) x1000/uL 281 MPV (8.0-11.0) fL 12.3 H Immature Gran % See Differential Neutrophils % 30.0 Lymphocytes % 54.0 Monocytes % 11.0 Eosinophils % 0.0 Basophils % 0.0 Absolute Neutrophils (1.2-6.7) k/cumm 5.22 Band Neutrophils % 0.0 Absolute Lymphocytes (1.2-3.4) k/cumm 10.10 H Absolute Monocytes (0.11-0.7) k/cumm 1.92 H Absolute Eosinophils (0.0-0.7) k/cumm 0.00 Absolute Basophils (0.0-0.2) k/cumm 0.00 Metamyelocytes % 0.0 Myelocytes % 0.0 Promyelocytes % 0 Differential Comment Manual differential Atypical Lymphocytes 4 Other Cell Type 0 RBC Morphology See below Sodium (136-145) mmol/L 139 Potassium (3.5-5.1) mmol/L 3.3 L Chloride (98-107) mmol/L 100 Carbon Dioxide (21.0-32.0) mmol/L 13.1 L Anion Gap (3-11) mmol/L 25.9 H BUN (7-18) mg/dL 7 Creatinine (0.55-1.02) mg/dL 1.09 H Estimated GFR/1.73 m2 (mL/min/1.73m2) >= 60.00 Glucose (70-100) mg/dL 138 H Calcium (8.5-10.1) mg/dL 8.6 Total Bilirubin (0.2-1.0) mg/dL 0.3 AST (15-37) U/L 27 ALT (12-78) U/L 39 Alkaline Phosphatase (46-116) U/L 79 Total Protein (6.4-8.2) g/dL 8.0 Albumin (3.4-5.0) g/dL 3.9 Urine Color (Yellow) Yellow Urine Clarity Clear Urine pH (5-8) 7.5 Ur Specific [place] (1.005-1.025) 1.020 Urine Protein (Negative) mg/dL 30 H Urine Ketones (Negative) mg/dL Negative Urine Blood (Negative) Negative Urine Nitrite (Negative) Negative Urine Bilirubin (Negative) Negative Urine Urobilinogen (Up TO 0.2) EU/dL 0.2 Ur Leukocyte Esterase (Negative) Negative Urine RBC (0-2) Negative Urine WBC (0-5) HPF 0-2 Ur Epithelial Cells (Negative) HPF Many Urine Crystals (Negative) HPF Negative Urine Bacteria (Negative) HPF Moderate Urine Casts (Negative) LPF Negative Urine Mucus (Negative) Moderate Ur Culture Indicated? No/sq. contamination Urine Glucose (Negative) mg/dL Negative Range/Units 12/11/17 21:00 WBC (4.4-10.8) k/cumm RBC (4.00-5.20) m/cumm Hgb (12.0-15.5) g/dL Hct (36.0-46.0) % MCV (80-95) fL MCH (27.0-33.0) pg MCHC (32.0-36.0) g/dL RDW (11.7-14.6) % Plt Count (130-400) x1000/uL MPV (8.0-11.0) fL Immature Gran % Neutrophils % Lymphocytes % Monocytes % Eosinophils % Basophils % Absolute Neutrophils (1.2-6.7) k/cumm Band Neutrophils % Absolute Lymphocytes (1.2-3.4) k/cumm Absolute Monocytes (0.11-0.7) k/cumm Absolute Eosinophils (0.0-0.7) k/cumm Absolute Basophils (0.0-0.2) k/cumm Metamyelocytes % Myelocytes % Promyelocytes % Differential Comment Atypical Lymphocytes Other Cell Type RBC Morphology Sodium (136-145) mmol/L 138 Potassium (3.5-5.1) mmol/L 4.5 D Chloride (98-107) mmol/L 107 Carbon Dioxide (21.0-32.0) mmol/L 24.8 Anion Gap (3-11) mmol/L 6.2 BUN (7-18) mg/dL 5 L Creatinine (0.55-1.02) mg/dL 0.55 D Estimated GFR/1.73 m2 (mL/min/1.73m2) >= 60.00 Glucose (70-100) mg/dL 87 D Calcium (8.5-10.1) mg/dL 7.2 L Total Bilirubin (0.2-1.0) mg/dL AST (15-37) U/L ALT (12-78) U/L Alkaline Phosphatase (46-116) U/L Total Protein (6.4-8.2) g/dL Albumin (3.4-5.0) g/dL Urine Color (Yellow) Urine Clarity Urine pH (5-8) Ur Specific [place] (1.005-1.025) Urine Protein (Negative) mg/dL Urine Ketones (Negative) mg/dL Urine Blood (Negative) Urine Nitrite (Negative) Urine Bilirubin (Negative) Urine Urobilinogen (Up TO 0.2) EU/dL Ur Leukocyte Esterase (Negative) Urine RBC (0-2) Urine WBC (0-5) HPF Ur Epithelial Cells (Negative) HPF Urine Crystals (Negative) HPF Urine Bacteria (Negative) HPF Urine Casts (Negative) LPF Urine Mucus (Negative) Ur Culture Indicated? Urine Glucose (Negative) mg/dL POC- Test(urine) Negative Sign Out Sign Out Data: Sign Out Comment: Patient signed out to Dr. Dunaway pending repeat chemistry and urine testing. Anticipate discharge home. Last updated by Lelia Romo MD at 12/11/17 21:30
== END 2017-12-11 22:14 | disposition home or self-care (01) ==
PROVIDERS: Student in an Organized Health Care Education/Training Program; Emergency Provider Emergency Medicine; PCP Internal Medicine
DX: R56.9 Unspecified convulsions (principal)
CPT/HCPCS: 80048; 80053; 93005; 96360; 99284; 81003; 81015; 85025; 93010; 99281

== ENCOUNTER 2018-01-29 11:14 | Outpatient (CLI) | payer OTHER, SELFPAY | END 2018-01-29 11:34 | PROVIDERS: PCP Internal Medicine; Visit Provider Psychiatry & Neurology Neurology | DX: R56.9 Unspecified convulsions (principal); Z51.81 Encounter for therapeutic drug level monitoring; Z79.899 Other long term (current) drug therapy | CPT/HCPCS: 36415; 80177 ==

== ENCOUNTER 2018-07-21 10:22 | Emergency (ER) | payer OTHER, SELFPAY ==
[2018-07-21 10:33] VITALS: BP 108/58; PULSE 80; RESP 18; TEMP 36.7; O2SAT 97
--- NOTE | 2018-07-21 10:46 | DI.RAD_ITS ---
SYMPTOMS/DIAGNOSIS: PAIN, INVERSION INJURY RIGHT ANKLE: No fracture or ankle mortise widening is seen. No talar dome defect is present. IMPRESSION: Negative right ankle. RIGHT FOOT: No fracture or dislocation is seen. IMPRESSION: Negative right foot.
--- NOTE | 2018-07-21 10:48 | W.ED.GENAD ---
Discharge Plan Disposition Patient Disposition: HOME Discharge Details Chief Complaint: Orthopedic Clinical Impression: Right foot sprain Primary Care Provider: Dean Pastrana ED Provider: Micha Romo Home Meds and New Rx's Prescriptions: Continued folic acid 1 mg tablet 1 mg PO DAILY Qty: 90 RF: 3 sertraline 50 mg tablet 150 mg PO DAILY Qty: 30 RF: 0 levetiracetam 1,000 mg tablet 1,000 mg PO BID Qty: 60 RF: 5 albuterol sulfate 8.5 GM HFA aerosol inhaler 8.5 gm Inhalation Q4H PRN PRNRF: 0 acetaminophen [Tylenol] 325 MG tablet 650 mg PO Q4H PRN PRNRF: 0 Discharge Instructions Instructions: How to Stop Smoking (ED), Foot Sprain (ED) Additional Instructions: Please use ankle stabilizer and crutches for the next 2 weeks. You may bear weight as tolerated. Please take ibuprofen over the counter - dose according to label. Please contact your primary care physician to arrange follow-up. Be sure to talk to your doctor about smoking cessation. Return to the ER for any worsening or new concerning symptoms. Referrals: Dean Pastrana MD [Primary Care Provider] - Medical Decision Making 23-year-old female here with right ankle pain and tenderness right lateral foot and ankle after inversion injury last night. Neurovascular intact distally. Urine checked and negative. We will give ibuprofen for pain. X-ray of the ankle and foot interpreted by radiology: Normal Patient placed in lace up ankle stabilizer and provided crutches. Usual customary discharge instructions were provided. Smoking cessation counseling greater than 5 minutes was provided. Patient does seem somewhat motivated. HPI General Mode of arrival: ambulatory. Date/Time Provider Initiated Documentation: 07/21/18 10:46. Limitations to Documentation: no limitations. Information obtained by: patient. HPI Narrative: 23-year-old female presents with chief complaint of right ankle pain. Patient notes that last night she attempted to jump over a toy and landed on the tween inverted her right ankle. Pain is moderate and worse with ambulation. Pain is localized to lateral ankle and lateral foot. She has no associated numbness or tingling. No other injury. No pain proximal lower leg. Related Data Home Medications Medication Instructions Recorded Confirmed albuterol sulfate 8.5 gm INHALATION Q4H PRN PRN 12/21/14 07/21/18 acetaminophen [Tylenol] 650 mg PO Q4H PRN PRN tab 09/18/15 07/21/18 folic acid 1 mg tablet 1 mg PO DAILY #90 tab 01/29/18 07/21/18 sertraline 50 mg tablet 150 mg PO DAILY #30 tab-cap 04/22/18 07/21/18 levetiracetam 1,000 mg tablet 1,000 mg PO BID #60 tab 05/19/18 07/21/18 Previous Rx's Medication Instructions Recorded acetaminophen [Tylenol] 650 mg PO Q4H PRN PRN tab 09/18/15 folic acid 1 mg tablet 1 mg PO DAILY #90 tab 01/29/18 levetiracetam 1,000 mg tablet 1,000 mg PO BID #60 tab 05/19/18 Allergies Allergy/AdvReac Type Severity Reaction Status Date / Time amoxicillin Allergy Hives Unverified 07/21/18 10:36 cefixime [From Suprax] Allergy Hives Unverified 07/21/18 10:36 cephalexin Allergy Hives Unverified 07/21/18 10:36 clarithromycin [From Biaxin] Allergy Hives Unverified 07/21/18 10:36 clonidine Allergy Hives Unverified 07/21/18 10:36 erythromycin base Allergy Hives Unverified 07/21/18 10:36 Penicillins Allergy Hives Unverified 07/21/18 10:36 Sulfa (Sulfonamide Allergy Hives Unverified 07/21/18 10:36 Antibiotics) General Stated Complaint: Orthopedic RIVKA: 4 Review of Systems Musculoskeletal Reports as per HPI Neurologic Reports as per HPI [facility] Medical History Epilepsy (Acute) Depression (Acute 02/04/15) Surgical History Appendectomy (11/08/15) Family History Mother Alcohol abuse Hyperlipidemia Mental disorder Father Alcohol abuse Essential hypertension Brother Substance abuse Alcohol abuse Mental disorder Brother Alcohol abuse Brother Alcohol abuse Brother Alcohol abuse Social History Smoking/Tobacco Use Status: Current every day Drug use: Never Do you feel safe in your relationship?: Yes History History Para 1 Hx # Term Pregnancies Multiple births Hx # Pregnancies Ectopic pregnancies AB induced Hx Number of Living Children AB spontaneous Exam Const General: cooperative and healthy appearing Cardio Rate: regular rate Rhythm: regular rhythm Pulses: dorsalis pedis pulses present on the right 2+ Neuro Sensory Exam: no sensory deficits noted (Right foot) Extrem Right lower extremity: lower leg Details: no tenderness (Proximal fibula), ankle Details: tenderness Location: of the lateral malleolus and foot Details: tenderness Location: of the lateral foot Location: distally and in the mid-section Course Vital Signs Temperature 36.7 C 07/21/18 10:33 Pulse 80 07/21/18 10:33 Respiratory Rate 18 07/21/18 10:33 Blood Pressure 108/58 L 07/21/18 10:33 Pulse Oximetry 97 07/21/18 10:33 Temperature 36.7 C 07/21/18 10:33 Temperature Source Skin 07/21/18 10:33 Pulse 80 07/21/18 10:33 Respiratory Rate 18 07/21/18 10:33 Blood Pressure 108/58 L 07/21/18 10:33 Pulse Oximetry 97 07/21/18 10:33 Oxygen Delivery Method Room Air 07/21/18 10:33 Oxygen Flow Rate 0 07/21/18 10:33 Pain Level 4 07/21/18 10:33
--- NOTE | 2018-07-21 10:53 | ED.GENADUL_ITS ---
Discharge Plan Disposition Patient Disposition: HOME Discharge Details Chief Complaint: Orthopedic Clinical Impression: Right foot sprain Primary Care Provider: Dean Pastrana ED Provider: Micha Romo Home Meds and New Rx's Prescriptions: Continued folic acid 1 mg tablet 1 mg PO DAILY Qty: 90 RF: 3 sertraline 50 mg tablet 150 mg PO DAILY Qty: 30 RF: 0 levetiracetam 1,000 mg tablet 1,000 mg PO BID Qty: 60 RF: 5 albuterol sulfate 8.5 GM HFA aerosol inhaler 8.5 gm Inhalation Q4H PRN PRNRF: 0 acetaminophen [Tylenol] 325 MG tablet 650 mg PO Q4H PRN PRNRF: 0 Discharge Instructions Instructions: How to Stop Smoking (ED), Foot Sprain (ED) Additional Instructions: Please use ankle stabilizer and crutches for the next 2 weeks. You may bear weight as tolerated. Please take ibuprofen over the counter - dose according to label. Please contact your primary care physician to arrange follow-up. Be sure to talk to your doctor about smoking cessation. Return to the ER for any worsening or new concerning symptoms. Referrals: Dean Pastrana MD [Primary Care Provider] - Medical Decision Making 23-year-old female here with right ankle pain and tenderness right lateral foot and ankle after inversion injury last night. Neurovascular intact distally. Urine checked and negative. We will give ibuprofen for pain. X-ray of the ankle and foot interpreted by radiology: Normal Patient placed in lace up ankle stabilizer and provided crutches. Usual customary discharge instructions were provided. Smoking cessation counseling greater than 5 minutes was provided. Patient does seem somewhat motivated. HPI General Mode of arrival: ambulatory . Date/Time Provider Initiated Documentation: 07/21/18 10:46 . Limitations to Documentation: no limitations . Information obtained by: patient . HPI Narrative: 23-year-old female presents with chief complaint of right ankle pain. Patient notes that last night she attempted to jump over a toy and landed on the tween inverted her right ankle. Pain is moderate and worse with ambulation. Pain is localized to lateral ankle and lateral foot. She has no associated numbness or tingling. No other injury. No pain proximal lower leg. Related Data Home Medications Medication Instructions Recorded Confirmed albuterol sulfate 8.5 gm INHALATION Q4H PRN PRN 12/21/14 07/21/18 acetaminophen [Tylenol] 650 mg PO Q4H PRN PRN tab 09/18/15 07/21/18 folic acid 1 mg tablet 1 mg PO DAILY #90 tab 01/29/18 07/21/18 sertraline 50 mg tablet 150 mg PO DAILY #30 tab-cap 04/22/18 07/21/18 levetiracetam 1,000 mg tablet 1,000 mg PO BID #60 tab 05/19/18 07/21/18 Previous Rx's Medication Instructions Recorded acetaminophen [Tylenol] 650 mg PO Q4H PRN PRN tab 09/18/15 folic acid 1 mg tablet 1 mg PO DAILY #90 tab 01/29/18 levetiracetam 1,000 mg tablet 1,000 mg PO BID #60 tab 05/19/18 Allergies Allergy/AdvReac Type Severity Reaction Status Date / Time amoxicillin Allergy Hives Unverified 07/21/18 10:36 cefixime [From Suprax] Allergy Hives Unverified 07/21/18 10:36 cephalexin Allergy Hives Unverified 07/21/18 10:36 clarithromycin [From Biaxin] Allergy Hives Unverified 07/21/18 10:36 clonidine Allergy Hives Unverified 07/21/18 10:36 erythromycin base Allergy Hives Unverified 07/21/18 10:36 Penicillins Allergy Hives Unverified 07/21/18 10:36 Sulfa (Sulfonamide Allergy Hives Unverified 07/21/18 10:36 Antibiotics) General Stated Complaint: Orthopedic RIVKA: 4 Review of Systems Musculoskeletal Reports as per HPI Neurologic Reports as per HPI [facility] Medical History Epilepsy (Acute) Depression (Acute 02/04/15) Surgical History Appendectomy (11/08/15) Family History Mother Alcohol abuse Hyperlipidemia Mental disorder Father Alcohol abuse Essential hypertension Brother Substance abuse Alcohol abuse Mental disorder Brother Alcohol abuse Brother Alcohol abuse Brother Alcohol abuse Social History Smoking/Tobacco Use Status: Current every day Drug use: Never Do you feel safe in your relationship?: Yes History History Para 1 Hx # Term Pregnancies Multiple births Hx # Pregnancies Ectopic pregnancies AB induced Hx Number of Living Children AB spontaneous Exam Const General: cooperative and healthy appearing Cardio Rate: regular rate Rhythm: regular rhythm Pulses: dorsalis pedis pulses present on the right 2+ Neuro Sensory Exam: no sensory deficits noted (Right foot) Extrem Right lower extremity: lower leg Details: no tenderness (Proximal fibula), ankle Details: tenderness Location: of the lateral malleolus and foot Details: tenderness Location: of the lateral foot Location: distally and in the mid- section Course Vital Signs Temperature 36.7 C 07/21/18 10:33 Pulse 80 07/21/18 10:33 Respiratory Rate 18 07/21/18 10:33 Blood Pressure 108/58 L 07/21/18 10:33 Pulse Oximetry 97 07/21/18 10:33 Temperature 36.7 C 07/21/18 10:33 Temperature Source Skin 07/21/18 10:33 Pulse 80 07/21/18 10:33 Respiratory Rate 18 07/21/18 10:33 Blood Pressure 108/58 L 07/21/18 10:33 Pulse Oximetry 97 07/21/18 10:33 Oxygen Delivery Method Room Air 07/21/18 10:33 Oxygen Flow Rate 0 07/21/18 10:33 Pain Level 4 07/21/18 10:33
--- NOTE | 2018-07-21 12:23 | NUR.NOTE ---
Nursing Note: patient receceived discharge and follow up instruction, with a return demonstration of crutch teaching. patient home with mother
== END 2018-07-21 12:25 | disposition home or self-care (01) ==
PROVIDERS: Emergency Provider Student in an Organized Health Care Education/Training Program; PCP Internal Medicine
DX: S93.601A Unspecified sprain of right foot, initial encounter (principal); M25.571 Pain in right ankle and joints of right foot; X50.9XXA Other and unspecified overexertion or strenuous movements or postures, initial encounter
CPT/HCPCS: 29515; 81025; 99284; 99406; 73610; 73630; 99283; E0114; L1902

== ENCOUNTER 2018-09-18 09:47 | Outpatient (REF) | payer OTHER, SELFPAY ==
--- NOTE | 2018-09-18 08:45 | PAPFT_PTH ---
PATIENT: Dianne Anaya LOC: [facility] U#:[id number] AGE/SX: 23/F ROOM: RE09/18/[address]: Nicky Gambino : 1995 BED: DIS: 09/18/2018 SPEC #: [id number] RECD: 09/19/18 12:56 STATUS: TWAN REPineda #: [id number] DAISY: 09/18/18 08:[address]: Nicky Gambino DEPT: [facility] Cytology RECD BY: Jovita Zaragoza Tissues: 1 - CX/ENDOCX FOR PAP SMEARS Procedures: PAP THIN PREP/UVM Screening Comments: [id number] (CHLAMYDIA/GC)
[2018-09-22 14:53] LABS: Chlamydia Result Negative; GC Result Negative; Specimen Description SEE COMMENTS
== END 2018-09-18 10:07 ==
LOC: NCHCN 09:47
PROVIDERS: Internal Medicine; PCP Nurse Practitioner Family; Visit Provider Nurse Practitioner Family
DX: Z00.00 Encounter for general adult medical examination without abnormal findings (principal); Z12.4 Encounter for screening for malignant neoplasm of cervix; Z01.419 Encounter for gynecological examination (general) (routine) without abnormal findings
CPT/HCPCS: 87491; 87591; 88142

== ENCOUNTER 2018-09-19 01:18 | Outpatient (CLI) | payer OTHER, SELFPAY ==
--- NOTE | 2018-09-19 09:51 | DI.US_ITS ---
SYMPTOM/DIAGNOSIS: US LEFT BREAST FOR PALPABLE LOWER MEDIAL QUADRANT LEFT BREAST ULTRASOUND: All four quadrants of the left breast were evaluated sonographically. No cystic or solid masses are present. IMPRESSION: Negative left breast ultrasound. Follow up as clinically appropriate. The findings were discussed with the patient on the day of the examination.
== END 2018-09-19 01:38 ==
PROVIDERS: PCP Internal Medicine; Visit Provider Nurse Practitioner Family
DX: N63.24 Unspecified lump in the left breast, lower inner quadrant (principal)
CPT/HCPCS: 76642

== ENCOUNTER 2019-01-14 11:03 | Outpatient (REF) | payer OTHER, SELFPAY ==
[2019-01-14 13:27] LABS: Abs Immature Grans 0.01 k/cumm (0.0-0.09); Absolute Basophil Count 0.02 k/cumm (0.0-0.2); Absolute Eosinophil Count 0.05 k/cumm (0.0-0.7); Absolute Lymphocyte Count 2.58 k/cumm (1.2-3.4); Absolute Monocyte Count 0.49 k/cumm (0.11-0.7); Absolute Neutrophil Count 3.17 k/cumm (1.2-6.7); Basophils % 0.3; Eosinophils % 0.8; HCT 44.7 % (36.0-46.0); HGB 14.3 g/dL (12.0-15.5); Immature Grans % 0.2; Lymphocytes % 40.8; Mean Corpuscular Hemoglobin 29.5 pg (27.0-33.0); Mean Corpuscular Volume 92.4 fL (80-95); Monocytes % 7.8; Neutrophils % 50.1; Platelet Count 237 x1000/uL (130-400); RBC 4.84 m/cumm (4.00-5.20); White Blood Cell Count 6.32 k/cumm (4.4-10.8)
[2019-01-14 14:13] LABS: ALT 24 U/L (14-59); AST 18 U/L (15-37); Alkaline Phosphatase 65 U/L (46-116); Anion Gap 7.1 mmol/L (3-11); BUN 8 mg/dL (7-18); Bilirubin, Total 0.4 mg/dL (0.2-1.0); CO2 27.9 mmol/L (21.0-32.0); CREATININE 0.75 mg/dL (0.55-1.02); Calcium 8.9 mg/dL (8.5-10.1); Chloride 104 mmol/L (98-107); Glucose 85 mg/dL (70-100); Potassium 4.4 mmol/L (3.5-5.1); Sodium 139 mmol/L (136-145); Total Protein 7.5 g/dL (6.4-8.2)
[2019-01-15 21:05] LABS: Levetiracetam 31.7 mcg/mL
== END 2019-01-14 11:23 ==
LOC: NCHCN 11:03
PROVIDERS: PCP Internal Medicine; Visit Provider Specialist/Technologist Athletic Trainer
DX: R51 Headache (principal); R56.9 Unspecified convulsions; Z51.81 Encounter for therapeutic drug level monitoring
CPT/HCPCS: 80053; 80177; 85025

== ENCOUNTER 2019-04-03 14:41 | Outpatient (CLI) | payer OTHER, SELFPAY ==
[2019-04-03 16:37] LABS: *AMPHETAMINES SCREEN URINE Negative (Negative); *BARBITURATES SCREEN URINE Negative (Negative); *BENZODIAZEPINES SCREEN URINE Negative (Negative); Cannabinoids THC Negative (Negative); Cocaine Screen,Urine Negative (Negative); METHADONE URINE SCREEN Negative (Negative); OPIATES URINE SCREEN Negative (Negative)
[2019-04-03 17:30] LABS: Tricyclic Antidepressants Negative (Negative)
[2019-04-06 14:37] LABS: Chlamydia Result Negative (Negative); GC Result Negative (Negative)
[2019-04-08 12:49] LABS: Buprenorphine Negative; Norbuprenorphine Negative
== END 2019-04-03 15:01 ==
PROVIDERS: PCP Internal Medicine; Visit Provider Advanced Practice Midwife
DX: Z34.91 Encounter for supervision of normal pregnancy, unspecified, first trimester (principal); Z11.3 Encounter for screening for infections with a predominantly sexual mode of transmission
CPT/HCPCS: 80307; 87491; 87591; 87086

== ENCOUNTER 2019-04-08 13:42 | Outpatient (CLI) | payer OTHER, SELFPAY ==
[2019-04-08 14:17] LABS: Abs Immature Grans 0.04 k/cumm (0.0-0.09); Absolute Basophil Count 0.02 k/cumm (0.0-0.2); Absolute Eosinophil Count 0.04 k/cumm (0.0-0.7); Absolute Lymphocyte Count 2.53 k/cumm (1.2-3.4); Absolute Monocyte Count 0.51 k/cumm (0.11-0.7); Absolute Neutrophil Count 5.84 k/cumm (1.2-6.7); Basophils % 0.2; Eosinophils % 0.4; HCT 37.4 % (36.0-46.0); HGB 12.4 g/dL (12.0-15.5); Immature Grans % 0.4 %; Lymphocytes % 28.2; Mean Corp. HGB Concentration 33.2 g/dL (32.0-36.0); Mean Corpuscular Hemoglobin 30.1 pg (27.0-33.0); Mean Corpuscular Volume 90.8 fL (80-95); Monocytes % 5.7; Neutrophils % 65.1; Platelet Count 260 x1000/uL (130-400); RBC 4.12 m/cumm (4.00-5.20); RBC Distribution Width 12.3 % (11.7-14.6); White Blood Cell Count 8.98 k/cumm (4.4-10.8)
[2019-04-08 15:13] LABS: TSH (W/Ref FT4) 0.82 uIU/mL (0.36-3.74)
[2019-04-09 09:43] LABS: Hepatitis B Surface Ag Negative (Negative)
[2019-04-09 10:41] LABS: HIV-1/2 Ag & Ab Screen Negative (Negative)
[2019-04-09 10:50] LABS: Hepatitis C Ab w Rflx HCV PCR Negative (Negative)
[2019-04-09 11:58] LABS: Rubella IgG Ab (UVM) Positive (See Note); Varicella IgG Antibody Positive (See Note)
[2019-04-10 09:52] LABS: Levetiracetam 28.8 mcg/mL
[2019-04-13 13:33] LABS: Syphilis Serology (RPR) Negative (Negative)
== END 2019-04-08 14:02 ==
PROVIDERS: Advanced Practice Midwife; PCP Internal Medicine; Visit Provider Psychiatry & Neurology Neurology
DX: O99.351 Diseases of the nervous system complicating pregnancy, first trimester (principal); G40.909 Epilepsy, unspecified, not intractable, without status epilepticus
CPT/HCPCS: 36415; 86787; 86803; 86850; 86900; 86901; 87340; 87389; 80177; 84443; 85025; 86592; 86762; 86780

== ENCOUNTER 2019-05-29 10:58 | Outpatient (CLI) | payer OTHER, SELFPAY ==
[2019-05-30 12:27] LABS: Levetiracetam 54.8 mcg/mL
== END 2019-05-29 11:18 ==
PROVIDERS: PCP Internal Medicine; Visit Provider Psychiatry & Neurology Neurology
DX: G40.009 Localization-related (focal) (partial) idiopathic epilepsy and epileptic syndromes with seizures of localized onset, not intractable, without status epilepticus (principal); Z51.81 Encounter for therapeutic drug level monitoring
CPT/HCPCS: 36415; 80177

== ENCOUNTER 2019-06-28 17:46 | Emergency (ER) | payer OTHER, SELFPAY ==
[2019-06-28 17:49] VITALS: BP 107/48; PULSE 90; RESP 14; O2SAT 95
--- NOTE | 2019-06-28 18:23 | ED.GENADUL_ITS ---
Discharge Plan Disposition Patient Disposition: HOME Condition: Stable Discharge Details Chief Complaint: Laceration Clinical Impression: Hand laceration Primary Care Provider: Dean Pastrana ED Provider: Kerry Mercado Home Meds and New Rx's Prescriptions: Continued folic acid 1 mg tablet 1 mg PO .three times a day Qty: 90 RF: 12 vit-iron fum-folic ac 27 mg iron- 0.8 mg tablet 1 tab PO DAILY Qty: 90 RF: 3 sertraline 50 mg tablet 150 mg PO DAILY Qty: 30 RF: 0 levetiracetam 1,000 mg tablet 1,500 mg PO BID Qty: 90 RF: 5 albuterol sulfate 8.5 GM HFA aerosol inhaler 8.5 gm Inhalation Q4H PRN PRNRF: 0 acetaminophen [Tylenol] 325 MG tablet 650 mg PO Q4H PRN PRNRF: 0 Discharge Instructions Instructions: Laceration (ED) Additional Instructions: No soaking, in 12 to 24 hours you may wash wound under running water with soap. Allow to dry. Keep clean and dry every day. Keep covered if outside. Have sutures removed in 7 to 10 days return sooner or be seen if any increasing redness, swelling, drainage or signs of infection. The anesthesia will wear off in approximately 2 hours so you may take Tylenol upon returning home. Follow up with primary care provider in 3-5 days. Return to ED sooner if any worsening or concerns. Increase oral fluids. Referrals: Dean Pastrana MD [Primary Care Provider] - Medical Decision Making 24-year-old female presents with a single linear laceration to the dorsum of her left hand in between her thumb and pointer finger. She states that she was cutting some zip ties while fishing poles prior to arrival and the knife slipped and she excellently cut herself. She has full range of motion on initial exam bleeding is controlled. Last tetanus shot was 2015. Laceration irrigated wound care performed with sterile saline and chlorhexidine. Laceration infiltrated with 1% lidocaine with epi approximately 1 male patient tolerated without difficulty. Anesthesia achieved. 2 simple interrupted sutures placed patient tolerated well. Wound well approximated. Bacitracin and nonadhesive dressing applied in department. Patient discussed home care and instructed to return in 7 days to have sutures removed. Given red flags including signs of infection and home care and instructions to return or be seen sooner. Patient verbalized understanding. Patient's last tetanus shot was in 2015 so tetanus was not given in this visit. X-ray was initially ordered and then canceled after learning of patient's . Due to mechanism of injury the likelihood of foreign body is very low and I do not deem exposure to radiation completely necessary at this time. Discussed with patient shared decision making patient verbalized understanding. Patient discharged to home with home care. This text was generated using Stop Being Watchedation system, please disregard any oddities of phrase or misspellings. HPI General Mode of arrival: ambulatory . Date/Time Provider Initiated Documentation: 06/28/19 17:47 . Limitations to Documentation: no limitations . Information obtained by: patient . HPI Narrative: 24-year-old female presents with a single linear laceration to the dorsum of her left hand in between her thumb and pointer finger. She states that she was cutting some zip ties while fishing poles prior to arrival and the knife slipped and she excellently cut herself. She has full range of motion on initial exam bleeding is controlled. Last tetanus shot was 2015. Related Data Home Medications Medication Instructions Recorded Confirmed albuterol sulfate 8.5 gm INHALATION Q4H PRN PRN 12/21/14 06/28/19 acetaminophen [Tylenol] 650 mg PO Q4H PRN PRN tab 09/18/15 06/28/19 sertraline 50 mg tablet 150 mg PO DAILY #30 tab-cap 04/22/18 06/28/19 folic acid 1 mg tablet 1 mg PO .three times a day #90 tab 03/09/19 06/28/19 vitamins-iron fumarate 27 1 tab PO DAILY #90 tab 04/03/19 06/28/19 mg iron-folic acid 0.8 mg tablet levetiracetam 1,000 mg tablet 1,500 mg PO BID #90 tab 04/13/19 06/28/19 Previous Rx's Medication Instructions Recorded acetaminophen [Tylenol] 650 mg PO Q4H PRN PRN tab 09/18/15 folic acid 1 mg tablet 1 mg PO .three times a day #90 tab 03/09/19 vitamins-iron fumarate 27 1 tab PO DAILY #90 tab 04/03/19 mg iron-folic acid 0.8 mg tablet levetiracetam 1,000 mg tablet 1,500 mg PO BID #90 tab 04/13/19 Allergies Allergy/AdvReac Type Severity Reaction Status Date / Time amoxicillin Allergy Hives Verified 06/28/19 17:52 cefixime [From Suprax] Allergy Hives Verified 06/28/19 17:52 cephalexin Allergy Hives Verified 06/28/19 17:52 clarithromycin [From Biaxin] Allergy Hives Verified 06/28/19 17:52 clonidine Allergy Hives Verified 06/28/19 17:52 erythromycin base Allergy Hives Verified 06/28/19 17:52 Penicillins Allergy Hives Verified 06/28/19 17:52 Sulfa (Sulfonamide Allergy Hives Verified 06/28/19 17:52 Antibiotics) General Stated Complaint: Laceration RIVKA: 4 Review of Systems Constitutional Constitutional: Reports as per HPI Integumentary/Breasts Skin/Breast: Reports wounds (Laceration to the dorsum of the left hand as noted in HPI.) [facility] Medical History Anxiety disorder, unspecified (Acute) Depression (Acute 02/04/15) Epilepsy (Acute) Adult focal epilepsy; 2 febrile seizures around age 4 Tobacco dependence (Acute) Surgical History Appendectomy (11/08/15) S/p bilateral myringotomy with tube placement (Acute) Family History Mother Alcohol abuse recovery Hyperlipidemia Mental disorder Father Alcohol abuse recovery Essential hypertension Brother Substance abuse , AlcoholCocaine Alcohol abuse Mental disorder Brother Alcohol abuse Brother Alcohol abuse Brother Alcohol abuse Other Spina bifida Social History Smoking/Tobacco Use Status: Current every day Quit status: not considering quitting Alcohol Intake: never Drug use: Never Number of Children: 1 current occupation: [employer] Do you feel safe at home: Yes Do you feel safe in your relationship?: Yes Additional Social history: She lives with the father of her children (he is 20+ years older). She has a daughter named Emelyn who was born in September 2015. 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 History History 2 Para 1 Hx # Term Pregnancies 1 Multiple births 0 Hx # Pregnancies 0 Ectopic pregnancies 0 AB induced 0 Hx Number of Living Children 1 AB spontaneous 0 Past Pregnancies Del. Date GA/Weeks # Outcome Route Wgt Sex Labor Lgth Anesthes ia Location Prov Complic 09/18/15 38 No Successful vaginal 1.984 kg Female 30.5 hrs dustin cnm Delivery Date: 09/18/15 iol for iugr. @ 37.4 weeks perineal depression which resulted in of 1,3 &3. infant stabilized and [place] [facility] [place] spent 6 days in [facility]. [place] [facility] [place] pathology w/o significant findings. LAURA SCOTT Exam Resp Effort & Inspection: normal respiratory effort Cardio Rate: regular rate Rhythm: regular rhythm GI Inspection: normal to inspection Palpation: soft Skin Trauma: laceration left dorsal hand linear, superficial, motor nerve function intact and sensation intact; not contaminated and does not involve muscle tissue Course Vital Signs Vital signs: Vital Signs Pulse 90 06/28/19 17:49 Respiratory Rate 14 06/28/19 17:49 Blood Pressure 107/48 L 06/28/19 17:49 Pulse Oximetry 95 06/28/19 17:49 Temperature Source Skin 06/28/19 17:49 Pulse 90 06/28/19 17:49 Respiratory Rate 14 06/28/19 17:49 Respiratory Effort Non-Labored 06/28/19 17:53 Blood Pressure 107/48 L 06/28/19 17:49 Blood Pressure Position Sitting 06/28/19 17:49 Pulse Oximetry 95 06/28/19 17:49 Oxygen Delivery Method Room Air 06/28/19 17:49 Oxygen Flow Rate 0 06/28/19 17:49 Pain Level 0 06/28/19 17:53 Procedures Laceration Laceration 1: Site: hand Side (If applicable): left Size (cm): 0.5 Description: linear Depth: simple, single layer Local Anesthetic: Lidocaine 1% and with Epi Amount of anesthesia used (mL): 1 Pre-repair: wound explored and irrigated extensively Skin layer closed with: nylon Size (cm): 5-0 Number of sutures: 2 Technique: simple, interrupted
== END 2019-06-28 19:05 | disposition home or self-care (01) ==
PROVIDERS: Emergency Provider Registered Nurse Emergency; PCP Internal Medicine
DX: S61.412A Laceration without foreign body of left hand, initial encounter (principal); W26.0XXA Contact with knife, initial encounter; Z33.1 Pregnant state, incidental
CPT/HCPCS: 12001

== ENCOUNTER 2019-07-13 02:09 | Outpatient (CLI) | payer OTHER, SELFPAY ==
[2019-07-15 10:49] LABS: Levetiracetam 23.9 mcg/mL
== END 2019-07-13 02:29 ==
PROVIDERS: PCP Internal Medicine; Visit Provider Psychiatry & Neurology Neurology
DX: G40.009 Localization-related (focal) (partial) idiopathic epilepsy and epileptic syndromes with seizures of localized onset, not intractable, without status epilepticus (principal); Z51.81 Encounter for therapeutic drug level monitoring
CPT/HCPCS: 36415; 80177

== ENCOUNTER 2019-08-13 01:22 | Outpatient (CLI) | payer OTHER, SELFPAY ==
--- NOTE | 2019-08-13 14:45 | DI.US_ITS ---
EXAM: US OB ANNA WEIGHT CLINICAL HISTORY: history of IUGR baby,Z34.90. TECHNIQUE: Transabdominal obstetrical ultrasound performed. COMPARISON: US US OB DETAILED MORPHOLOGY from 06/02/2019 FINDINGS: There is a single living intrauterine gestation. The estimated sonographic age is 28 weeks 4 days. The fetus is in the cephalic presentation. heart rate is 150 beats per minute. A anatom ic evaluation was not performed at this time. Amniotic fluid index is 16 cm. Visually, the amniotic fluid appears within normal limits. The placenta is posterior without evidence of previa. . IMPRESSION: 1. Single live intrauterine gestation as above. DATA REPOSITORY:
== END 2019-08-13 01:42 ==
PROVIDERS: PCP Internal Medicine; Visit Provider Advanced Practice Midwife
DX: Z34.93 Encounter for supervision of normal pregnancy, unspecified, third trimester (principal); Z3A.28 28 weeks gestation of pregnancy
CPT/HCPCS: 76816

== ENCOUNTER 2019-08-13 02:31 | Outpatient (CLI) | payer OTHER, SELFPAY ==
[2019-08-13 16:12] LABS: Glucose,1 Hr (Glucola) 167 mg/dL (80-140)
[2019-08-13 16:17] LABS: HCT 35.9 % (36.0-46.0); HGB 11.6 g/dL (12.0-15.5); Mean Corp. HGB Concentration 32.3 g/dL (32.0-36.0); Mean Corpuscular Hemoglobin 29.7 pg (27.0-33.0); Mean Corpuscular Volume 92.1 fL (80-95); Mean Platelet Volume 11.7 fL (8.0-11.0); Platelet Count 214 x1000/uL (130-400); RBC Distribution Width 13.3 % (11.7-14.6); White Blood Cell Count 11.64 k/cumm (4.4-10.8)
== END 2019-08-13 02:51 ==
PROVIDERS: PCP Internal Medicine; Visit Provider Advanced Practice Midwife
DX: Z34.93 Encounter for supervision of normal pregnancy, unspecified, third trimester (principal)
CPT/HCPCS: 36415; 82950; 85027

== ENCOUNTER 2019-08-26 02:34 | Outpatient (CLI) | payer OTHER, SELFPAY ==
[2019-08-26 11:53] LABS: Glucose 1 Hour 174 mg/dL
[2019-08-26 13:44] LABS: Glucose 3 Hour 124 mg/dL
== END 2019-08-26 02:54 ==
PROVIDERS: PCP Internal Medicine; Visit Provider Advanced Practice Midwife
DX: R73.09 Other abnormal glucose (principal); Z34.83 Encounter for supervision of other normal pregnancy, third trimester
CPT/HCPCS: 36415; 82951

== ENCOUNTER 2019-10-08 01:19 | Outpatient (CLI) | payer OTHER, SELFPAY ==
--- NOTE | 2019-10-08 06:15 | DI.US_ITS ---
EXAM: US OB ANNA WEIGHT CLINICAL HISTORY: interval growth,Z87.59,PREVIOUS BABY SGA TECHNIQUE: Ultrasound performed using standard protocol. COMPARISON: US US OB ANNA WEIGHT from 08/13/2019 FINDINGS: Ob ultrasound was performed utilizing 3rd trimester protocol. biometry is consistent with gest ational age of 33 weeks 4 days and EDC of November 21. The estimated weight is 2218 grams which is 2nd percentile for predicted gestational age. Umbilical artery Doppler evaluation shows pulsatility index and resistive index in the normal range. Fetus is in cephalic presentation. heart rate 144 BPM. Placenta is fundal with no placenta previa. There is visually normal quantity of amniotic fluid and the ANNA is 9. IMPRESSION: DATA REPOSITORY:
== END 2019-10-08 01:39 ==
PROVIDERS: PCP Internal Medicine; Visit Provider Advanced Practice Midwife
DX: Z34.93 Encounter for supervision of normal pregnancy, unspecified, third trimester (principal); Z87.59 Personal history of other complications of pregnancy, childbirth and the puerperium
CPT/HCPCS: 76816

== ENCOUNTER 2019-10-08 13:33 | Outpatient (REF) | payer OTHER, SELFPAY | END 2019-10-08 13:53 | LOC: LBN 13:33 | PROVIDERS: PCP Internal Medicine; Visit Provider Advanced Practice Midwife | DX: Z34.90 Encounter for supervision of normal pregnancy, unspecified, unspecified trimester (principal) | CPT/HCPCS: 87081 ==

== ENCOUNTER 2019-10-09 12:30 | Outpatient (CLI) | payer OTHER, SELFPAY | END 2019-10-09 12:50 | PROVIDERS: PCP Internal Medicine; Visit Provider Advanced Practice Midwife | DX: R69 Illness, unspecified (principal) | CPT/HCPCS: 59025 ==

== ENCOUNTER 2019-10-11 09:56 | Outpatient (CLI) | payer OTHER, SELFPAY | END 2019-10-11 10:16 | PROVIDERS: PCP Internal Medicine; Visit Provider Advanced Practice Midwife | DX: O36.5930 Maternal care for other known or suspected poor fetal growth, third trimester, not applicable or unspecified (principal); Z3A.37 37 weeks gestation of pregnancy | CPT/HCPCS: 59025 ==

== ENCOUNTER 2019-10-13 07:18 | Outpatient (CLI) | payer OTHER, SELFPAY | END 2019-10-13 07:38 | PROVIDERS: PCP Internal Medicine; Visit Provider Advanced Practice Midwife | DX: O36.5930 Maternal care for other known or suspected poor fetal growth, third trimester, not applicable or unspecified (principal); Z3A.37 37 weeks gestation of pregnancy | CPT/HCPCS: 59025 ==

== ENCOUNTER 2022-04-12 16:09 | Outpatient (REF) | payer MEDICAID, SELFPAY ==
--- NOTE | 2022-04-12 14:55 | PAPFT_PTH ---
PATIENT: Dianne Anaya LOC: [facility] U#:[id number] AGE/SX: 26/F ROOM: RE04/12/[address]: Nicky Gambino : 1995 BED: DIS: 04/12/2022 SPEC #: [id number] RECD: 04/13/22 12:51 STATUS: TWAN REPineda #: [id number] DAISY: 04/12/22 14:[address]: Nicky Gambino DEPT: [facility] Cytology RECD BY: Jovita Zaragoza ENTERED: 04/13/22 12:52 SP TYPE: PAPFT OTHR DR: Dean Pastrana Tissues: 1 - CX/ENDOCX FOR PAP SMEARS Procedures: PAP THIN PREP/UVM Screening Comments: [id number]
[2022-04-12 21:07] LABS: HCT 43.5 % (36.0-46.0); HGB 13.7 g/dL (11.2-15.7); MCH 29.1 pg (27.0-33.0); MCHC 31.5 % (32.0-36.0); MCV 92 fL (80-95); MPV 12.7 fL (8.0-11.0); Platelet Count 218 10^3/uL (130-400); RBC 4.71 10^6/uL (3.93-5.22); RDW 13.2 % (11.7-14.6); RDW-SD 45.4 fL
[2022-04-12 21:20] LABS: Iron 115 ug/dL (50-170)
== END 2022-04-12 16:10 | disposition home or self-care (01) ==
LOC: NCHCN 16:09
PROVIDERS: PCP Internal Medicine; Visit Provider Nurse Practitioner Family
DX: Z12.4 Encounter for screening for malignant neoplasm of cervix (principal); R53.83 Other fatigue
CPT/HCPCS: 85027; 88142; 83540

== ENCOUNTER 2022-07-18 10:08 | Emergency (ER) | payer MEDICAID, SELFPAY ==
[2022-07-18 10:10] VITALS: BP 113/74; PULSE 83; RESP 18; TEMP 37.1; O2SAT 98
--- NOTE | 2022-07-18 10:30 | DI.CT_ITS ---
Exam(s) CT ABDOMEN PELVIS W EXAM: CT ABDOMEN PELVIS W CLINICAL HISTORY: Umbilical Hernia, Abdominal pain. TECHNIQUE: Imaging Protocol: Axial computed tomography images with coronal and sagittal reformatted images were created and reviewed CONTRAST MATERIAL: Intravenous: Omnipaque 350 Contrast volume:100 ml Oral: no COMPARISON: CT ABD PELVIS WITH CONTRAST from 11/08/2015 FINDINGS: ABDOMEN: Lung Bases: Normal where visualized. Liver: Normal density. No measurable mass. Gallbladder and biliary tract: No radiodense calculus or dilation. Pancreas: Normal density, no abnormal calcifications or inflammatory process. Spleen: Normal. Kidneys: Normal size, contour and axis. No radiodense stones or obstructive uropathy. No suspicious m asses seen. Adrenal glands: No masses seen. Abdominal Aorta: Abdominal portion non-dilated. Soft tissues: Skin thickening in the umbilicus. Question of a small amount of fluid within. No polly ia visible. PELVIS: Bladder: No gross wall thickening. No calculi.No focal mass. Bowel: No obstruction. No bowel wall thickening. Status post appendectomy. Peritoneal cavity: No ascites, collection or mesenteric inflammatory response. Bones: Unremarkable for age. Reproductive organs: Within normal limits. Lymph nodes: Unremarkable. Impression: Skin thickening of the umbilicus with small amount of fluid versus abscess. Findings called to Kerry Mercado of the emergency department RADIATION DOSE DELIVERED: 568.42mGy.cm Total DLP DATA REPOSITORY: All CT scans at this facility are submitted to the National Radiology Data Registry (NRDR) Dose Index Registry (DIR) with the [employer] (ACR). RADIATION OPTIMIZATION: All CT scans at this facility use at least one of these dose optimization te chniques: automated exposure control; mA and/or kV adjustment per patient size (includes targeted exa ms where dose is matched to clinical indication); or iterative reconstruction.
--- NOTE | 2022-07-18 10:31 | ED.GENADUL_ITS ---
Discharge Plan Disposition Patient Disposition: Home Discharge Details Clinical Impression: Cellulitis of umbilicus Primary Care Provider: Dean Pastrana ED Provider: Kerry Mercado Home Meds and New Rx's Prescriptions: New clindamycin HCl 150 mg capsule 450 mg PO TID 7 Days Qty: 63 0RF Rx Instructions: Take 3 capsules 3 times daily for the next 7 days No Action folic acid 1 mg tablet 1 mg PO DAILY Qty: 90 3RF norgestimate-ethinyl estradiol [Estarylla] 0.25-35 mg-mcg tablet 1 tab PO DAILY sertraline 50 mg tablet 150 mg PO DAILY Qty: 30 levetiracetam 1,000 mg tablet See Rx Instructions .ROUTE .COMPLEX Qty: 180 3RF Dose Instruction: TAKE ONE TABLET BY MOUTH TWO TIMES A DAY Rx Instructions: TAKE ONE TABLET BY MOUTH TWO TIMES A DAY Discharge Instructions Instructions: Cellulitis (ED) Additional Instructions: Please keep keep your bellybutton clean clean with soap and water and a Q-tip 2- 3 times a day. Take the antibiotics with yogurt or probiotic as directed. If it continues to bother you or appears to be getting bigger please follow-up with general surgery. Follow up with primary care provider in 3-5 days. Return to ED sooner if any worsening or concerns. Increase oral fluids. No evidence of umbilical hernia Please take Tylenol or Ibuprofen with food every 4-6 hours as needed for pain and swelling. Referrals: Dean Pastrana MD [Primary Care Provider] - 5 days Medical Decision Making 27-year-old female presents to the ER after being seen in express care for periumbilical abdominal pain which she noticed began on Saturday. She reports that she was really raking some leaves on Saturday and had increased pain. It is tender with palpation. Does have a palpable mass noted. Denies any nausea vomiting diarrhea problems urinating or fever. She has had history of appendectomy. CBC, CMP, lactate CT abdomen pelvis with contrast ordered. CBC shows no leukocytosis, lactate within normal limits, CMP largely within normal limits magnesium slightly low at 1.6, urinalysis shows small blood trace leukocytes 3-5 RBCs and 0-2 WBCs. Culture is pending at this time. Patient not treated due to no complaints of dysuria. CT abdomen pelvis shows no hernia however there is thickened umbilicus with possible fluid. Patient does have slightly deep umbilicus, was cleaned with Q-tip and alcohol swab. Discussed cleaning out with soap and water and a Q-tip up to 3 times a day. Patient placed on clindamycin for possible cellulitis and instructed to follow-up with PCP or general surgery if he gets any worse. She verbalized understanding. This text was generated using [employer] system, please disregard any oddities of phrase or misspellings. Imaging Data Radiologic Study: Imaging: CT Scan Radiologist's impression: ABDOMEN: Lung Bases: Normal where visualized. Liver: Normal density. No measurable mass. Gallbladder and biliary tract: No radiodense calculus or dilation. Pancreas: Normal density, no abnormal calcifications or inflammatory process. Spleen: Normal. Kidneys: Normal size, contour and axis. No radiodense stones or obstructive uropathy. No suspicious masses seen. Adrenal glands: No masses seen. Abdominal Aorta: Abdominal portion non-dilated. Soft tissues: Skin thickening in the umbilicus. Question of a small amount of fluid within. No hernia visible. PELVIS: Bladder: No gross wall thickening. No calculi.No focal mass. Bowel: No obstruction. No bowel wall thickening. Status post appendectomy. Peritoneal cavity: No ascites, collection or mesenteric inflammatory response. Bones: Unremarkable for age. Reproductive organs: Within normal limits. Lymph nodes: Unremarkable. Impression: Skin thickening of the umbilicus with small amount of fluid versus abscess. Findings called to Kerry Mercado of the emergency department Lab Data Lab results reviewed: Yes I reviewed the patient's lab results. Labs: 07/18/22 10:54 Urine - Reflex from Ua Urine Culture - Pending Laboratory Tests Range/Units 07/18/22 07/18/22 07/18/22 10:42 10:42 10:42 WBC (4.4-10.8) 10^3/uL 9.07 RBC (3.93-5.22) 10^6/uL 4.78 Hgb (11.2-15.7) g/dL 13.9 Hct (36.0-46.0) % 43.0 MCV (80-95) fL 90 MCH (27.0-33.0) pg 29.1 MCHC (32.0-36.0) % 32.3 RDW (11.7-14.6) % 12.9 Plt Count (130-400) 10^3/uL 268 MPV (8.0-11.0) fL 11.1 H Immature Gran % 0.4 Neutrophils % 61.3 Lymphocytes % 30.2 Monocytes % 6.4 Eosinophils % 0.9 Basophils % 0.8 Nucleated RBC % (0.0-0.3) % 0.0 Absolute Neutrophils (1.2-6.7) 10^3/uL 5.56 Absolute Lymphocytes (1.2-3.4) 10^3/uL 2.74 Absolute Monocytes (0.1-0.8) 10^3/uL 0.58 Absolute Eosinophils (0.0-0.7) 10^3/uL 0.08 Absolute Basophils (0.0-0.2) 10^3/uL 0.07 VBG Lactate (0.6-1.4) mmol/L 0.9 Sodium (136-145) mmol/L 138 Potassium (3.5-5.1) mmol/L 4.5 Chloride (98-107) mmol/L 104 Carbon Dioxide (21.0-32.0) mmol/L 27.3 Anion Gap (3-11) mmol/L 6.7 BUN (7-18) mg/dL 6 L Creatinine (0.55-1.02) mg/dL 0.8 Est GFR (CKD-EPI 2020) (mL/min/1.73m2) 103.50 Glucose (74-106) mg/dL 96 Calcium (8.5-10.1) mg/dL 8.9 Magnesium (1.8-2.4) mg/dL 1.6 L Total Bilirubin (0.2-1.0) mg/dL 0.3 AST (15-37) U/L 17 ALT (14-59) U/L 20 Alkaline Phosphatase (46-116) U/L 66 Total Protein (6.4-8.2) g/dL 7.5 Albumin (3.4-5.0) g/dL 3.3 L Urine Color (Yellow) Urine Clarity (Clear) Urine pH (5-8) Ur Specific [place] (1.005-1.025) Urine Protein (Negative) mg/dL Urine Ketones (Negative) mg/dL Urine Blood (Negative) Urine Nitrite (Negative) Urine Bilirubin (Negative) Urine Urobilinogen (Up to 0.2) mg/dL Ur Leukocyte Esterase (Negative) Urine RBC (0-2) HPF Urine WBC (0-5) HPF Ur Epithelial Cells (Negative) HPF Urine Crystals (Negative) HPF Urine Bacteria (Negative) HPF Urine Casts (Negative) LPF Urine Mucus (Negative) Ur Culture Indicated? Urine Glucose (Negative) mg/dL Range/Units 07/18/22 10:54 WBC (4.4-10.8) 10^3/uL RBC (3.93-5.22) 10^6/uL Hgb (11.2-15.7) g/dL Hct (36.0-46.0) % MCV (80-95) fL MCH (27.0-33.0) pg MCHC (32.0-36.0) % RDW (11.7-14.6) % Plt Count (130-400) 10^3/uL MPV (8.0-11.0) fL Immature Gran % Neutrophils % Lymphocytes % Monocytes % Eosinophils % Basophils % Nucleated RBC % (0.0-0.3) % Absolute Neutrophils (1.2-6.7) 10^3/uL Absolute Lymphocytes (1.2-3.4) 10^3/uL Absolute Monocytes (0.1-0.8) 10^3/uL Absolute Eosinophils (0.0-0.7) 10^3/uL Absolute Basophils (0.0-0.2) 10^3/uL VBG Lactate (0.6-1.4) mmol/L Sodium (136-145) mmol/L Potassium (3.5-5.1) mmol/L Chloride (98-107) mmol/L Carbon Dioxide (21.0-32.0) mmol/L Anion Gap (3-11) mmol/L BUN (7-18) mg/dL Creatinine (0.55-1.02) mg/dL Est GFR (CKD-EPI 2020) (mL/min/1.73m2) Glucose (74-106) mg/dL Calcium (8.5-10.1) mg/dL Magnesium (1.8-2.4) mg/dL Total Bilirubin (0.2-1.0) mg/dL AST (15-37) U/L ALT (14-59) U/L Alkaline Phosphatase (46-116) U/L Total Protein (6.4-8.2) g/dL Albumin (3.4-5.0) g/dL Urine Color (Yellow) Yellow Urine Clarity (Clear) Clear Urine pH (5-8) 7.5 Ur Specific [place] (1.005-1.025) 1.020 Urine Protein (Negative) mg/dL Negative Urine Ketones (Negative) mg/dL Negative Urine Blood (Negative) Small H Urine Nitrite (Negative) Negative Urine Bilirubin (Negative) Negative Urine Urobilinogen (Up to 0.2) mg/dL 0.2 Ur Leukocyte Esterase (Negative) Trace H Urine RBC (0-2) HPF 3-5 H Urine WBC (0-5) HPF 0-2 Ur Epithelial Cells (Negative) HPF Few Urine Crystals (Negative) HPF Negative Urine Bacteria (Negative) HPF Rare Urine Casts (Negative) LPF Negative Urine Mucus (Negative) Negative Ur Culture Indicated? Yes Urine Glucose (Negative) mg/dL Negative HPI General Mode of arrival: ambulatory . Date/Time Provider Initiated Documentation: 07/18/22 10:14 . Limitations to Documentation: no limitations . Information obtained by: patient, RN notes reviewed and old records reviewed . HPI Narrative: 27-year-old female presents to the ER after being seen in [facility] care for periumbilical abdominal pain which she noticed began on Saturday. She reports that she was really raking some leaves on Saturday and had increased pain. It is tender with palpation. Does have a palpable mass noted. Denies any nausea vomiting diarrhea problems urinating or fever. She has had history of appendectomy. Other past medical history include epilepsy depression, anxiety, tobacco dependence. Related Data Home Medications Medication Instructions Recorded Confirmed sertraline 50 mg tablet 150 mg PO DAILY #30 tab-caps 04/22/18 07/18/22 norgestimate 0.25 mg-ethinyl 1 tab PO DAILY 02/09/20 07/18/22 estradiol 35 mcg tablet (Estarylla) folic acid 1 mg tablet 1 mg PO DAILY #90 tabs 04/17/21 07/18/22 levetiracetam 1,000 mg tablet See Rx Instructions .Route 04/24/22 07/18/22 .COMPLEX #180 tabs clindamycin HCl 150 mg capsule 450 mg PO TID 7 days #63 caps 07/18/22 Previous Rx's Medication Instructions Recorded folic acid 1 mg tablet 1 mg PO DAILY #90 tabs 04/17/21 levetiracetam 1,000 mg tablet See Rx Instructions .Route 04/24/22 .COMPLEX #180 tabs clindamycin HCl 150 mg capsule 450 mg PO TID 7 days #63 caps 07/18/22 Allergies Allergy/AdvReac Type Severity Reaction Status Date / Time amoxicillin Allergy Hives Verified 07/18/22 10:12 cefixime [From Suprax] Allergy Hives Verified 07/18/22 10:12 cephalexin Allergy Hives Verified 07/18/22 10:12 clarithromycin [From Biaxin] Allergy Hives Verified 07/18/22 10:12 clonidine Allergy Hives Verified 07/18/22 10:12 erythromycin base Allergy Hives Verified 07/18/22 10:12 Penicillins Allergy Hives Verified 07/18/22 10:12 Sulfa (Sulfonamide Allergy Hives Verified 07/18/22 10:12 Antibiotics) General Stated Complaint: Abd Prob RIVKA: 3 Review of Systems All systems reviewed & are unremarkable except as noted in HPI and below Gastrointestinal Gastrointestinal: Reports as per HPI and Reports abdominal pain PFSH All Active Problems (Updated 07/18/22 @ 11:41 by Kerry Mercado NP) Cellulitis of umbilicus (Acute) Encounter for care and examination after delivery (Acute) IUGR (intrauterine growth restriction) affecting care of mother (Acute) Elevated glucose tolerance test (Acute) Encounter for supervision of other normal , third trimester (Acute) Previous baby was small for gestational age (Acute) Tobacco dependence (Acute) (Acute) Anxiety disorder, unspecified (Acute) Other specified counseling (Acute) Positive test (Acute) Epilepsy (Acute) Adult focal epilepsy; 2 febrile seizures around age 4 Depression (Acute 02/04/15) Surgical History Appendectomy (11/08/15) S/p bilateral myringotomy with tube placement Family History Mother Alcohol abuse recovery Hyperlipidemia Mental disorder Father Alcohol abuse recovery Essential hypertension Brother Substance abuse , AlcoholCocaine Alcohol abuse Mental disorder Brother Alcohol abuse Brother Alcohol abuse Brother Alcohol abuse Other Spina bifida Social History Smoking/Tobacco Use Status: Current every day Tobacco Type: cigarettes Quit status: not considering quitting Smoking risk assessment performed?: Yes Alcohol Intake: current Alcohol Intake frequency: holidays/special occasions only Drug use: Occasionally Substance use type: marijuana Household members: significant other and children Housing: house Number of Children: 2 Pets and animals: Yes Pets and animals: cat(s) and dog(s) Seatbelt use: always Do you feel safe at home: Yes Do you feel safe in your relationship?: Yes Additional Social history: She lives with the father of her children (he is 20+ years older). She has a daughter named Emelyn who was born in September 2015. 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 History History 3 Para 2 Hx # Term Pregnancies 2 Multiple births 0 Hx # Pregnancies 0 Ectopic pregnancies 0 AB induced 0 Hx Number of Living Children 2 AB spontaneous 0 Past Pregnancies Del. Date GA/Weeks # Preg Succ Route Wgt Sex Labor Lgth Anesth esia Location Prov Compl 09/18/15 38 No vaginal 1984.467 g Female 30.5 hrs [facility] 10/14/19 37 No vaginal 2381.36 g [place] [facility] Delivery Date: 09/18/15 Last Updated by: Diana Bonilla CNM iol for iugr. @ 37.4 weeks perineal depression which resulted in of 1,3 &3. infant stabilized and [place] [facility]. spent 6 days in nicu. placenta to [facility] (w/ ) pathology w/o significant findings. Delivery Date: 10/14/19 Last Updated by: Ashley Dinh RN Induced at [facility] at 37.5 weeks for IUGR--progressed to deliver via , w/o analgesia. Delivered over intact perineum, Nuchal cord could not be reduced so male child was delivered through it--position complicated by 's right hand against the face. Exam Narrative Exam Narrative: Constitutional: Alert and oriented x3. Appears stated age. Normal body habitus. Head: Normocephalic, no trauma. Eyes: Pupils PERRL, Red reflex noted, EOM's intact. Eyelids symmetrical without lesions, discharge, or swelling. ENT: Bilateral TM's WNL, External ear normal to inspection, no mastoid TTP, swelling, or erythema, Nasal turbinates WNL, no nasal discharge. Normal dentition, Posterior pharynx WNL, no exudate. Chest: RRR, Normal S1, S2, distal pulses intact. Resp: Lungs clear to auscultation bilaterally, no wheezes, rales, or rhonchi. Abdomen: Soft, non-distended, Normoactive bowel sounds all 4 quads. Musculoskeletal: Normal gait, 5/5 strength to all four extremities. Skin: No suspicious rashes or lesions. Capillary refill less than 2 sec. Neurologic: Cranial nerves II-XII intact. Alert and oriented x 3. Motor: No deficits noted. Sensory: Intact bilaterally all 4 extremities. Reflexes: DTR's intact bilaterally.. Hematologic/Lymphatic: No ecchymosis, no lymphadenopathy. Course Vital Signs Vital signs: Vital Signs Temperature 37.1 C 07/18/22 10:10 Pulse 83 07/18/22 10:10 Respiratory Rate 18 07/18/22 10:10 Blood Pressure 113/74 07/18/22 10:10 Pulse Oximetry 98 07/18/22 10:10 Temperature 37.1 C 07/18/22 10:10 Temperature Source Temporal Artery Scan 07/18/22 10:10 Pulse 83 07/18/22 10:10 Respiratory Rate 18 07/18/22 10:10 Respiratory Effort Normal, Non-Labored 07/18/22 10:12 Blood Pressure 113/74 07/18/22 10:10 Pulse Oximetry 98 07/18/22 10:10 Oxygen Delivery Method Room Air 07/18/22 10:10 Oxygen Flow Rate 0 07/18/22 10:10
[2022-07-18 10:40] VITALS: O2SAT 97
[2022-07-18 10:41] VITALS: BP 113/68; PULSE 72; O2SAT 98
[2022-07-18 10:45] VITALS: BP 112/74; PULSE 74; O2SAT 97
[2022-07-18 10:49] LABS: Lactate 0.9 mmol/L (0.6-1.4)
[2022-07-18 10:51] LABS: Abs Immature Grans 0.04 10^3/uL (0.0-0.06); Absolute Basophil Count 0.07 10^3/uL (0.0-0.2); Absolute Eosinophil Count 0.08 10^3/uL (0.0-0.7); Absolute Lymphocyte Count 2.74 10^3/uL (1.2-3.4); Absolute Monocyte Count 0.58 10^3/uL (0.1-0.8); Absolute Neutrophil Count 5.56 10^3/uL (1.2-6.7); Basophils % 0.8; Eosinophils % 0.9; HGB 13.9 g/dL (11.2-15.7); Immature Grans % 0.4; Lymphocytes % 30.2; MCH 29.1 pg (27.0-33.0); MCHC 32.3 % (32.0-36.0); MCV 90 fL (80-95); MPV 11.1 fL (8.0-11.0); Monocytes % 6.4; Neutrophils % 61.3; Platelet Count 268 10^3/uL (130-400); RBC 4.78 10^6/uL (3.93-5.22); RDW 12.9 % (11.7-14.6); RDW-SD 42.7 fL; WBC 9.07 10^3/uL (4.4-10.8)
[2022-07-18 11:07] LABS: Bilirubin Negative (Negative); Blood Small (Negative); Clarity Clear (Clear); Glucose Negative (Negative); Ketones Negative (Negative); Leukocyte Esterase Trace (Negative); Nitrite Negative (Negative); Urobilinogen 0.2 mg/dL (Up to 0.2); pH 7.5 (5-8)
[2022-07-18] MEDS: Normal Saline - Diluent 50 ML VIAL IJ (11:12)
[2022-07-18 11:13] LABS: ALT 20 U/L (14-59); AST 17 U/L (15-37); Albumin 3.3 g/dL (3.4-5.0); Alkaline Phosphatase 66 U/L (46-116); Anion Gap 6.7 mmol/L (3-11); BUN 6 mg/dL (7-18); Bilirubin, Total 0.3 mg/dL (0.2-1.0); CO2 27.3 mmol/L (21.0-32.0); CREATININE 0.8 mg/dL (0.55-1.02); Calcium 8.9 mg/dL (8.5-10.1); Chloride 104 mmol/L (98-107); Glucose 96 mg/dL (74-106); Magnesium 1.6 mg/dL (1.8-2.4); Potassium 4.5 mmol/L (3.5-5.1); Sodium 138 mmol/L (136-145); Total Protein 7.5 g/dL (6.4-8.2)
[2022-07-18] MEDS: Omnipaque 350 MG/ML 100 ML BTL IJ (11:13)
[2022-07-18 11:14] LABS: Bacteria Rare HPF (Negative); C & S Indicated? Yes; Casts Negative LPF (Negative); Crystals Negative HPF (Negative); Epithelial Cells Few HPF (Negative); Mucus Negative (Negative); WBC 0-2 HPF (0-5)
[2022-07-18] MEDS: Clindamycin 150 MG CAP 450 MG PO (11:46)
== END 2022-07-18 11:50 | disposition home or self-care (01) ==
PROVIDERS: Emergency Provider Registered Nurse Emergency; PCP Internal Medicine
DX: L03.316 Cellulitis of umbilicus (principal); R10.9 Unspecified abdominal pain
CPT/HCPCS: 80053; 81025; 99284; 99285; 74177; 81003; 81015; 83605; 83735; 85025; 87086; J3490

== ENCOUNTER 2022-11-08 22:00 | Outpatient (REF) | payer MEDICAID, SELFPAY ==
[2022-11-08 22:17] LABS: HCT 44.3 % (36.0-46.0); HGB 14.6 g/dL (11.2-15.7); MCH 30.1 pg (27.0-33.0); MCV 91 fL (80-95); MPV 11.8 fL (8.0-11.0); Platelet Count 305 10^3/uL (130-400); RBC 4.85 10^6/uL (3.93-5.22); RDW 12.8 % (11.7-14.6); RDW-SD 43.3 fL; WBC 7.97 10^3/uL (4.4-10.8)
[2022-11-08 22:40] LABS: ALT 17 U/L (14-59); AST 25 U/L (15-37); Albumin 3.6 g/dL (3.4-5.0); Alkaline Phosphatase 54 U/L (46-116); Anion Gap 11.1 mmol/L (3-11); BUN 9 mg/dL (7-18); Bilirubin, Total 0.2 mg/dL (0.2-1.0); CO2 22.9 mmol/L (21.0-32.0); CREATININE 0.8 mg/dL (0.55-1.02); Chloride 102 mmol/L (98-107); Glucose 83 mg/dL (74-106); Potassium 4.3 mmol/L (3.5-5.1); Sodium 136 mmol/L (136-145); TSH (W/Ref FT4) 1.33 uIU/mL (0.36-3.74); Total Protein 7.2 g/dL (6.4-8.2)
[2022-11-09 18:24] LABS: FSH 0.5 mIU/mL (See Note)
[2022-11-09 18:26] LABS: Prolactin 10.3 ng/mL (See Note)
[2022-11-11 11:33] LABS: Estradiol Rapid, Immunoassay <25.0 pg/mL
== END 2022-11-08 22:01 | disposition home or self-care (01) ==
LOC: NCHCN 22:00
PROVIDERS: PCP Internal Medicine; Visit Provider Nurse Practitioner Family
DX: N91.2 Amenorrhea, unspecified (principal); R63.5 Abnormal weight gain
CPT/HCPCS: 80053; 82670; 85027; 83001; 84146; 84443

== ENCOUNTER 2023-02-26 18:44 | Outpatient (REF) | payer MEDICAID, SELFPAY | END 2023-02-26 18:45 | disposition home or self-care (01) | LOC: LBN 18:44 | PROVIDERS: PCP Internal Medicine; Visit Provider Physician Assistant | DX: J02.9 Acute pharyngitis, unspecified (principal) | CPT/HCPCS: 87070 ==

== ENCOUNTER 2024-01-13 17:24 | Outpatient (CLI) | payer MEDICAID, SELFPAY ==
--- NOTE | 2024-01-13 17:15 | DI.RAD_ITS ---
Exam(s) XR CHEST 2V PA LATERAL EXAM: XR CHEST 2V PA LATERAL CLINICAL HISTORY: eval pna TECHNIQUE: 2D digital imaging was performed of the chest. Two images were obtained. PA and lateral views were obtained. COMPARISON: No exams were available for comparison FINDINGS: MEDIASTINUM: Normal. HEART: Normal. PULMONARY VASCULATURE: Normal. LUNGS: There is a ill-defined opacity in the left upper lobe suspicious for pneumonia. The right munir g is clear. PLEURAL SPACE: No pleural effusion or pneumothorax. BONE:Within normal limits for the patient's age. OTHER FINDINGS:Normal. IMPRESSION: Findings suspicious for left upper lobe pneumonia. DATA REPOSITORY: RADIATION DOSE DELIVERED:
--- NOTE | 2024-01-13 18:14 | DI.VRAD_ITS ---
Addendum created by Barry Smallwood MD on 01/13/2024 6:20:07 PM EST: COMMENT: THIS REPORT CONTAINS FINDINGS THAT MAY BE CRITICAL TO PATIENT CARE. The exam findings were verbally communicated by me to YOLANDA JUSTICE via telephone conference at 6:19 PM EST on 01/13/2024. The findings were acknowledged and understood. Initial report created on 01/13/2024 6:14:33 PM EST: PROCEDURE INFORMATION: Exam: XR Chest Exam date and time: 01/13/2024 5:35 PM Age: 28 years old Clinical indication: Other: Eval pna TECHNIQUE: Imaging protocol: Radiologic exam of the chest. Views: 2 views. COMPARISON: CT ABDOMEN PELVIS W 07/18/2022 11:15 AM FINDINGS: Lungs: There is mild patchy and nodular branching density within the mid left lung, suggesting mild bronchopneumonia, likely within the left upper lobe. Lungs are otherwise clear. There is no pulmonary vascular congestion. Pleural spaces: There are no pleural effusions present. There is no evidence of pneumothorax. Heart/Mediastinum: Heart size may be near the upper limits of normal. Bones/joints: Unremarkable. IMPRESSION: Findings suggest mild bronchopneumonia within the left mid lung, as described above. Recommend clinical correlation as well as follow-up PA and lateral chest x-ray in 8 weeks to document resolution. Dictated and Authenticated by: Barry Smallwood MD. Ordering:BABAR Stanton MD
== END 2024-01-13 17:44 ==
PROVIDERS: PCP Nurse Practitioner Family; Visit Provider Nurse Practitioner Family
DX: J18.9 Pneumonia, unspecified organism (principal)
CPT/HCPCS: 71046

== ENCOUNTER 2024-04-22 21:05 | Outpatient (REF) | payer MEDICAID, SELFPAY | END 2024-04-22 21:06 | disposition home or self-care (01) | LOC: LBN 21:05 | PROVIDERS: PCP Nurse Practitioner Family; Visit Provider Nurse Practitioner Family | DX: J02.9 Acute pharyngitis, unspecified (principal); R68.89 Other general symptoms and signs; J06.9 Acute upper respiratory infection, unspecified | CPT/HCPCS: 87070 ==

== ENCOUNTER 2025-02-01 11:46 | Outpatient (REF) | payer MEDICAID, SELFPAY | END 2025-02-01 11:47 | disposition home or self-care (01) | LOC: LBN 11:46 | PROVIDERS: PCP Nurse Practitioner Family; Visit Provider Physician Assistant | DX: J02.9 Acute pharyngitis, unspecified (principal) | CPT/HCPCS: 87070 ==